=== PATIENT | female | born 1955 | race Caucasian/White ===

== ENCOUNTER 2025-03-24 13:06 | Inpatient (IN) | payer MEDICARE, BC, SELFPAY ==
--- NOTE | ~2025-03-24 | CT_ITS ---
EXAMINATION: CT ABDOMEN AND PELVIS WITH CONTRAST CLINICAL INFORMATION: No abdominal pain, constipation COMPARISON: None available. TECHNIQUE: Multidetector volumetric images were obtained from the superior aspect of the liver through the pubic symphysis following administration 85 mL of Omnipaque 350 intravenous contrast. Sagittal and coronal reformatted images were obtained on the technologist's workstation. Oral contrast: No This CT examination was performed using dose optimization techniques as appropriate, variously including the following: *Automated exposure control *Adjustment of mA and/or kV according to patient size (this includes techniques or standardized protocols for targeted exams where dose is matched to indication/reason for exam; i.e. extremities or head) *Use of iterative reconstruction technique FINDINGS: LUNG BASES: The visualized lung bases are unremarkable. LIVER, GALLBLADDER, AND BILIARY TREE: The liver is normal in size, shape, and attenuation. No focal hepatic lesion or biliary ductal dilatation is present. The gallbladder is unremarkable with no evidence of radiopaque gallstones, gallbladder wall thickening, or obvious pericholecystic inflammatory changes. PANCREAS: Unremarkable. SPLEEN: Unremarkable. ADRENAL GLANDS: Unremarkable. KIDNEYS AND URETERS: Parapelvic cysts are present on the left. Kidneys and ureters are otherwise unremarkable. BLADDER: Unremarkable. GASTROINTESTINAL TRACT: There are numerous pseudodiverticula in the sigmoid colon. There is thickening of the wall of the rectosigmoid junction and fat stranding. There are a few small pockets of gas anteriorly (axial CT#3.IM 62-) that are likely within a pseudodiverticula, but localized perforation is not entirely ruled out. There is moderate size sliding hiatal hernia containing stomach fundus. ABDOMINAL WALL: No significant hernia is appreciated. LYMPH NODES: Normal. VASCULAR: Unremarkable. PELVIC VISCERA: The uterus and ovaries is unremarkable. OSSEOUS STRUCTURES: Unremarkable. CT/CT abdomen pelvis w IV con IMPRESSION: Acute diverticulitis of the rectosigmoid junction. There are tiny pockets of gas that are probably within thinned pseudodiverticula, however a microperforation is not entirely excluded. There is no abscess. There is a moderate size sliding hiatal hernia involving the stomach fundus. Fleischner guidelines were followed. Electronically signed by: Juanjo Jones MD 03/24/2025 05:02 PM EDT
--- NOTE | ~2025-03-24 | CT_ITS ---
PROCEDURE: CT-GUIDED DRAINAGE, RETROPERITONEAL ABSCESS CLINICAL INFORMATION: DRAIN PLACEMENT PELVIC DIVERTICULAR ABSCESS COMPARISON: Previous CT scans most recent from yesterday TECHNIQUE: Procedure and risks and benefits were discussed with the patient including bleeding infection injury to the bowel or pelvic organs informed consent was obtained. The patient was positioned in the right lateral decubitus position. Limited axial images through the lower abdomen and pelvis were performed. Left buttock was prepped and draped in the usual sterile fashion. Skin and soft tissues were anesthetized with 1% lidocaine plain. Using a 22-gauge Chiba needle, access to the collection in the pelvis was obtained. Over an 018 wire, a 6 [place] AccuStick system was positioned in the collection. Over an 035 wire, a 10 [place] drainage catheter was positioned. Approximately 50 mL of slightly cloudy yellow fluid was aspirated. Drain was left in place to external bag drainage. Specimen was sent for Gram stain and culture. Conscious sedation was provided by registered nurse under my direct supervision with continuous hemodynamic monitoring. Total sedation time 30 minutes. Patient received Versed 1 mg and fentanyl 50 mcg intravenously during the procedure. DLP 3 09 mgy/cm This CT examination was performed using dose optimization techniques as appropriate, variously including the following: *Automated exposure control *Adjustment of mA and/or kV according to patient size (this includes techniques or standardized protocols for targeted exams where dose is matched to indication/reason for exam; i.e. extremities or head) *Use of iterative reconstruction technique FINDINGS: There is a collection containing some air in the pelvis anterior to the rectum and posterior to the uterus measuring 8 cm. Images demonstrate satisfactory position of drainage catheter in the collection. There is diverticulitis of the distal colon with wall thickening and stranding of the fat. There is a small amount of free intraperitoneal air that is similar to yesterday's exam. CT/CT drain retroperitoneal IMPRESSION: 10 [place] pelvic drain placement. Electronically signed by: Ashely Fulton MD 04/01/2025 12:27 PM EDT
--- NOTE | ~2025-03-24 | CT_ITS ---
EXAMINATION: CT ABDOMEN AND PELVIS WITH CONTRAST CLINICAL INFORMATION: Acute diverticulitis, with microperforations. COMPARISON: March 24, 2025. TECHNIQUE: Multidetector volumetric images were obtained from the superior aspect of the liver through the pubic symphysis following administration 85 mL of Omnipaque 350 intravenous contrast. Sagittal and coronal reformatted images were obtained on the technologist's workstation. Oral contrast: No This CT examination was performed using dose optimization techniques as appropriate, variously including the following: *Automated exposure control *Adjustment of mA and/or kV according to patient size (this includes techniques or standardized protocols for targeted exams where dose is matched to indication/reason for exam; i.e. extremities or head) *Use of iterative reconstruction technique DLP: 445 mGy centimeter. FINDINGS: There is a segmental asymmetric wall thickening involving the sigmoid colon and rectosigmoid colon with extraluminal tiny air/gas bubbles at the medial aspect of the rectosigmoid colon with a subtle 17 mm peripheral enhancing ill-defined fluid collection posterior to the uterus and anterior medial to the rectosigmoid colon. Gas and fluid-filled prominent distal small bowel loops. Collapsed appearance of the descending colon and numerous diverticula in the sigmoid colon. Abundant stool throughout the large intestine. The appendix is not fully depicted on the exam. There is no mesocecum fluid collections. There is a moderate to large volume hiatal hernia. There is no other change within the intra-abdominal solid organs and vascular structures. Prominent, likely reactive mesenteric and retroperitoneal lymph nodes. There is a retroaortic trajectory of the left main renal vein. CT/CT abdomen pelvis w IV con IMPRESSION: Complicated acute sigmoid colon diverticulitis with 17 mm phlegmon secondary to microperforations Fleischner guidelines were followed. Electronically signed by: Delfino Natarajan MD 03/26/2025 10:41 AM EDT
--- NOTE | ~2025-03-24 | CT_ITS ---
EXAMINATION: CT ABDOMEN PELVIS WITH IV CONTRAST HISTORY: diverticulitis w/ microperforation COMPARISON: Comparison is made with the prior examination dated 03/26/2025. TECHNIQUE: CT scan of the abdomen and pelvis was performed following administration of 85 mL Omnipaque 350 using standard departmental protocol. Coronal and sagittal reformatted images were generated and reviewed. Oral contrast material was not administered at the request of the referring physician. This CT exam was performed with one or more of the following dose reduction techniques: automated exposure control, adjustment of the mA and/or kV according to patient size, use of iterative reconstruction technique. DLP: 515 mGy-cm FINDINGS: LOWER CHEST: The visualized lung bases are clear. There are small bilateral pleural effusions, right greater than left.. CARDIOVASCULATURE: The heart is normal in size. There is no pericardial effusion. LIVER: The liver is normal in size and contour. No liver mass is identified. The hepatic and portal veins are patent. GALLBLADDER / BILE DUCTS: The gallbladder is unremarkable. There is no intra or extrahepatic biliary ductal dilatation. SPLEEN: The spleen is normal in size. No focal splenic lesion is identified. PANCREAS: The pancreas is unremarkable in appearance. ADRENAL GLANDS: Within normal limits. KIDNEYS/RETROPERITONEUM: No renal calculi are identified. There is no hydronephrosis. No renal masses are identified. LYMPH NODES: No abdominal or pelvic lymphadenopathy. VASCULATURE: The abdominal aorta is normal in caliber. MESENTERY/PERITONEUM: There is free fluid in the left midabdomen. There is new free intraperitoneal gas in the upper abdomen. STOMACH: There is a moderate hiatal hernia. The remainder of the stomach is collapsed. SMALL BOWEL: The small bowel is normal in caliber. COLON: Again seen is diverticulosis of the sigmoid colon. Surrounding inflammatory stranding is consistent with diverticulitis. There is a rim-enhancing fluid collection containing bubbles of gas in the dependent portion of the pelvis measuring 7.8 x 5.8 x 5.7 cm, consistent with an abscess. APPENDIX: The appendix is not seen, however no inflammatory changes are seen adjacent to the cecum. URINARY BLADDER/PELVIC ORGANS: The urinary bladder is unremarkable. The uterus is unremarkable. BONES / SOFT TISSUES: No suspicious bony or soft tissue abnormalities. CT/CT abdomen pelvis w IV con IMPRESSION: Again seen are findings of sigmoid diverticulitis. There is new free intraperitoneal gas in the upper abdomen and free fluid in the left midabdomen. New 7.8 x 5.8 x 5.7 cm pelvic abscess. Findings were communicated to MALVIN Huggins by secure text message on 03/31/2025 at 9:41 AM. Electronically signed by: Branden Cutler MD 03/31/2025 09:45 AM EDT
[2025-03-24 13:20] VITALS: BP 142/65; PULSE 86; RESP 16; TEMP 36.7; O2SAT 98; BMI 25.9
--- NOTE | 2025-03-24 13:21 | ED.GENADULT ---
HPI - General Adult General Chief complaint: Abdominal Pain Stated complaint: lower abd pain Time Seen by Provider: 03/24/25 15:39 Source: patient, family and old records reviewed Mode of arrival: ambulatory Limitations: no limitations History of Present Illness ED Provider: J LUIS EDMONDSON narrative: 69 yo female with PMH of HTN, HLD, RA on remicade and methotrexate here with c/o small stools, feels it it hard to go and LLQ pain. No fevers, no n/v. No real appetite. She has not had this before. She has no urinary symptoms. Last normal colonoscopy in 2021. She has no hx of diverticulitis. MD complaint: abd pain, change in stools. Onset (ago): day(s) (3) Location: abdomen Radiation: non-radiation Severity: moderate Quality: aching Pain Consistency: intermittent Relieving factors: none Exacerbating factors: movement Associated symptoms: loss of appetite and other Treatments prior to arrival: none Related Data Allergies Allergy/AdvReac Type Severity Reaction Status Date / Time No Known Allergies Allergy Verified 03/24/25 13:21 Review of Systems Review of Systems: Constitutional : No Weight loss, No Fever, No Chills ENT/Mouth : No sore throat, No Rhinorrhea Eyes: No Swelling, No Redness Cardiovascular : No Chest Pain, No SOB, NoEdema Respiratory : No Cough, No Sputum, No Wheezing Gastrointestinal : Positive Nausea, no Vomiting, no Diarrhea, positive abdominal Pain, No Hematochezia, No Melena Genitourinary : No Dysuria, No Urinary Frequency, No Hematuria, No Urgency Musculoskeletal : No joint pain, No Myalgias, No Joint Swelling Skin : No Skin Lesions, No rash Neuro : No Weakness, No Numbness, No Dizziness, No Headache All other systems reviewed and are negative. [facility] Past Medical History Attestation statement: The following information was validated with the patient. Source: old records reviewed Medical History HLD (hyperlipidemia) Rheumatoid arthritis HTN (hypertension) Social History Social History Smoked in Last 30 Days: No Use of substances other than those prescribed or required for medical reasons: No Advance Directives: Yes Advance Directives Information Provided: No Advance Directives on File: No Do you have a plan to hurt others: No Plan Physical Exam ED Vital Signs: Vital Signs - 24 hr 03/24/25 13:20 03/24/25 15:06 Temperature 98.1 F Pulse Rate 86 76 Respiratory Rate 16 16 Blood Pressure 142/65 H 145/64 H Pulse Oximetry 98 98 Oxygen Delivery Method Room Air Room Air BMI result Body Mass Index 25.9 Appearance: Alert. Oriented X3. No acute distress. Eyes: Pupils equal, round and reactive to light. ENT: Pharynx normal. Neck: Normal inspection. Neck supple. CVS: Normal heart rate and rhythm. Pulses normal. Respiratory: No respiratory distress. Breath sounds normal. Abdomen: Soft and moderate ttp in LLQ no rebound or guarding Skin: Skin warm and dry. Normal skin color. Normal skin turgor. Extremities: No lower extremity edema. Neuro: Oriented X 3. No motor deficit. No sensory deficit. Course Course Course Narrative: Rapid medical examination performed in triage by Elise Inman PA-C. Patient is a 69 year old assigned female at presenting to the emergency department with lower abdominal pain. Detailed physical exam and review of systems are deferred to the rigging foreman. Labs ordered. Patient placed back in the waiting room pending room availability and results. Reevaluation(s) Reevaluation #1: possible micro perforation with diverticulitis will consult with Dr. Pearl 514pm infection suspected 514pm IV zosyn ordered Medications Administered Discontinued Medications Generic Name Dose Route Start Last Admin Trade Name Freq PRN Reason Stop Dose Admin Acetaminophen 1,000 mg in 100 mls @ 400 mls/hr 03/24/25 16:29 03/24/25 16:46 Ofirmev IV 03/24/25 16:43 400 mls/hr ONCE ONE Administration Iohexol 100 ml 03/24/25 16:43 03/24/25 16:43 Iohexol 350 Mg/Ml 100 Ml Infus..Btl IV 03/24/25 16:44 85 ml ONCE ONE Administration Morphine Sulfate 4 mg 03/24/25 16:03/24/25 16:46 Morphine Sulfate 4 Mg/Ml Cartridge IVPUSH 03/24/25 16:30 Not Given ONCE ONE Protocol Ondansetron HCl 4 mg 03/24/25 16:29 03/24/25 16:46 Ondansetron Hcl 4 Mg/2 Ml Vial IVPUSH 03/24/25 16:30 4 mg ONCE ONE Administration Medical Decision Making Medical Decision Making MDM Narrative: 69 yo female with PMH of HTN, HLD, RA on remicade and methotrexate here with c/o LLQ pain and change in stools at this time will need basic labs, CT scan for diverticular ds, colitis, renal colic, IV morphine for pain ordered. Differential Diagnosis Differential Diagnoses: The differential diagnosis associated with the presentation includes colitis, diverticular ds, renal colic, mass Admission/Observation Consideration of admission/observation: Escalation of care including admission/observation considered will admit for IV abx Consult Healthcare Provider Management of the patient was discussed with: Cardiopulmonary Physical Therapist (Dr. pearl to admit) Lab Data [facility] Lab Attestation statement: I reviewed the patient's lab results. 03/24/25 13:53 03/24/25 13:53 Labs: Lab Results 03/24/25 Range/Units 13:53 WBC 11.1 H (4.8-10.8) X10*3/uL RBC 4.08 L (4.20-5.50) X10*6/uL Hgb 13.2 (12.0-16.0) g/dl Hct 38.6 (37.0-47.0) % MCV 94.6 (80.0-98.0) fL MCH 32.4 (27.0-33.0) pg MCHC 34.2 (31.0-35.0) g/dl RDW 12.9 (11.0-16.0) % Plt Count 278 (160-400) X10*3/uL MPV 10.2 (9.4-12.3) fL Immature Gran % (Auto) 0.3 (0.0-0.4) % Neut % (Auto) 81.9 H (45-73) % Lymph % (Auto) 11.2 L (20-40) % Calloway % (Auto) 5.8 (2-11) % Eos % (Auto) 0.4 (0-4) % Baso % (Auto) 0.4 (0-2) % Lymph # (Auto) 1.3 (1.2-4.9) X10*3/uL Calloway # (Auto) 0.6 (0.1-1.2) X10*3/uL Eos # (Auto) 0.0 (0.0-0.4) X10*3/uL Baso # (Auto) 0.0 (0.0-0.2) X10*3/uL Abs Immat Gran (auto) 0.03 (0.00-0.03) X10*3/uL Absolute Neuts (auto) 9.1 H (2.0-8.3) x10*3/uL Absolute Nucleated RBC 0.000 (0.0-0.012) X10*3/uL Nucleated RBC % (auto) 0.0 (0.0-0.2) /100WBC Sodium 140 (135-145) mmol/L Potassium 3.9 (3.3-5.1) mmol/L Chloride 106 (96-108) mmol/L Carbon Dioxide 25 (22-29) mmol/L Anion Gap 13 (12-20) BUN 14 (9-16) mg/dL Creatinine 0.65 (0.5-1.4) mg/dL Estim Creat Clear Calc 88.8 Estimated GFR > 60 Random Glucose 82 (60-115) mg/dL Calcium 9.6 (8.4-10.2) mg/dL Magnesium 2.1 (1.6-2.6) mg/dL Total Bilirubin 0.4 (0.0-1.0) mg/dL AST 32 H (5-31) U/L ALT 67 H (0-31) U/L Alkaline Phosphatase 78 (39-117) U/L Total Protein 7.3 (6.5-8.0) g/dL Albumin 4.3 (3.5-5.0) g/dL Lipase 14 (8-78) U/L Independent Interpretation I performed an independent interpretation of an: CT Scan (diverticultis with microperforation) Radiology Impression Discussion of test interpretation with radiology: I have reviewed the radiologist's reading. Independent Historian Clinical information obtained from an independent historian. History obtained from or confirmed by: Spouse External Record Review External record reviewed: Outpatient record Prescription Management I considered prescription management with: Pain Medication and Antibiotic Discharge Plan Discharge Clinical Impression: Diverticulitis, Abdominal pain Patient Disposition: Admitted As Inpatient Print Language: Cuban
[2025-03-24 13:58] LABS: MANUAL DIFF FLAG NO
[2025-03-24 14:00] LABS: Hematocrit 38.6 % (37.0-47.0); Hemoglobin 13.2 g/dl (12.0-16.0); Imm Gran Abs Auto 0.03 X10*3/uL (0.00-0.03); Imm Gran Pct Auto 0.3 % (0.0-0.4); Lymphocytes Absolute Auto 1.3 X10*3/uL (1.2-4.9); Mean Corpuscular HGB Conc 34.2 g/dl (31.0-35.0); Mean Corpuscular Hemoglobin 32.4 pg (27.0-33.0); Mean Corpuscular Volume 94.6 fL (80.0-98.0); NRBC Abs Auto 0.000 X10*3/uL (0.0-0.012); NRBC Pct Auto 0.0 /100WBC (0.0-0.2); Platelet Count 278 X10*3/uL (160-400); Red Blood Count 4.08 X10*6/uL (4.20-5.50); White Blood Count 11.1 X10*3/uL (4.8-10.8)
[2025-03-24 14:14] LABS: Alanine Aminotransferase 67 U/L (0-31); Albumin Level 4.3 g/dL (3.5-5.0); Alkaline Phosphatase 78 U/L (39-117); Anion Gap 13 (12-20); Aspartate Amino Transferase 32 U/L (5-31); Blood Urea Nitrogen 14 mg/dL (9-16); Calcium 9.6 mg/dL (8.4-10.2); Carbon Dioxide 25 mmol/L (22-29); Chloride 106 mmol/L (96-108); Creatinine Clr Calc Pharmacy 88.8; Estimated Glomerular Filt Rate > 60; Magnesium 2.1 mg/dL (1.6-2.6); Potassium 3.9 mmol/L (3.3-5.1); Sodium 140 mmol/L (135-145); Total Protein 7.3 g/dL (6.5-8.0)
[2025-03-24 15:06] VITALS: BP 145/64; PULSE 76; RESP 16; O2SAT 98
--- NOTE | 2025-03-24 15:14 | PC.NURSE ---
Patient is a 69 yo female who presents with lower abdominal cramping since [place] with assoc nausea. Alert and oriented. Lungs clear bilat. Respirations even and non-labored. Abdomen soft, with positive bowel sounds. c/o lower abdominal cramping. No significant tenderness noted. Denies any urinary symptoms at this time. Positive pedal pulses with no edema.
[2025-03-24 16:31] LABS: Lipase 14 U/L (8-78)
[2025-03-24] MEDS: iohexoL 350 MG/ML 100 ML INFUS..BTL IV (16:43)
--- NOTE | 2025-03-24 17:26 | PM.HPGS ---
History of Present Illness History of Present Illness Date of Service: 04/06/25 Chief complaint: Diverticulitis with microperforation Narrative: Domi Ghosh is a 69 year old female known for about her arthritis, GERD, hypertension, here in the ER because of lower abdominal pain for the past 3 days. She says that she thought that this was food poisoning. She says that this has not getting worse at all but just seems to have been persistent. She decided to be checked in the ER today therefore. She denies any vomiting. She denies any diarrhea. She does state that she has had some constipation She has had no fever or chills. She says her pain is [id number]. She says that she had a colonoscopy in 2021 and she remembers this to be unremarkable. Review of Systems Constitutional: Constitutional: Denies chills and Denies fever(s) Cardiovascular: Cardiovascular: Denies chest pain, Denies dyspnea and Denies dyspnea on exertion Respiratory: Respiratory: Denies cough, Denies dyspnea and Denies dyspnea on exertion Gastrointestinal: Gastrointestinal: Denies hematochezia and Denies change in bowel habits Genitourinary: Genitourinary: Denies hematuria Musculoskeletal: Musculoskeletal: Denies back pain and Denies limited range of motion Neurologic: Denies focal weakness and Denies convulsions Psychiatric: Psychiatric: Denies depression and Denies mood swings PMFSH Past Medical History Medical History HLD (hyperlipidemia) Rheumatoid arthritis HTN (hypertension) Social History Social History Household Members: Spouse Housing: House Patient Tobacco Use Status: Never used Tobacco Advance Directives Date on File: 03/24/25 service: No Meds Allergies Allergy/AdvReac Type Severity Reaction Status Date / Time No Known Allergies Allergy Verified 03/24/25 13:21 Active Medications: Current Medications Piperacillin Sod/Tazobactam (Sod 3.375 gm/ Sodium Chloride) 50 mls @ 100 mls/hr IV ONCE ONE Stop: 03/24/25 17:42 Home Medications ?Medication ?Instructions ?Recorded ?Confirmed ?Last Taken ?Type alendronate 70 mg tablet 70 mg PO MO 03/24/25 03/24/25 03/17/25 History amlodipine 5 mg-benazepril 10 mg 1 cap PO DAILY 03/24/25 03/24/25 03/24/25 History capsule esomeprazole magnesium 40 mg 40 mg PO DAILY@0630 03/24/25 03/24/25 03/24/25 History capsule,delayed release folic acid 1 mg tablet 1 mg PO DAILY 03/24/25 03/24/25 03/24/25 History infliximab 100 mg intravenous 100 mg IV [id number] 03/24/25 03/24/25 02/25/25 History solution (Remicade) methotrexate sodium 2.5 mg tablet 20 mg PO MO 03/24/25 03/24/25 03/17/25 History Physical Exam Vital Signs: Vital Signs: Last Vital Signs Temp 98.1 F 03/24/25 13:20 Pulse 76 03/24/25 15:06 Resp 16 03/24/25 15:06 BP 145/64 H 03/24/25 15:06 Pulse Ox 98 03/24/25 15:06 O2 Del Method Room Air 03/24/25 15:06 BMI result Body Mass Index 25.9 Const: General: comfortable and no acute distress Orientation/consciousness: patient oriented x3 Neck: Neck: Yes no lymphadenopathy Resp: Auscultation: clear to auscultation bilaterally Cardio: Rhythm: regular rhythm GI: Other: Mild tenderness in the lower abdomen with no guarding or rebound Palpation (GI): Soft to palpation, Tenderness to palpation present (GI) (Mild) and no guarding Neuro: General: patient oriented x3 Results Results Labs: Short CBC 03/24/25 Range/Units 13:53 WBC 11.1 H (4.8-10.8) X10*3/uL Hgb 13.2 (12.0-16.0) g/dl Hct 38.6 (37.0-47.0) % Plt Count 278 (160-400) X10*3/uL BMP 03/24/25 13:53 Sodium 140 Potassium 3.9 Chloride 106 Carbon Dioxide 25 BUN 14 Creatinine 0.65 Calcium 9.6 Liver Function 03/24/25 Range/Units 13:53 Total Bilirubin 0.4 (0.0-1.0) mg/dL AST 32 H (5-31) U/L ALT 67 H (0-31) U/L Alkaline Phosphatase 78 (39-117) U/L Albumin 4.3 (3.5-5.0) g/dL Abdomen CT scan report/results: report reviewed and image reviewed CT scan - pelvis: report reviewed and image reviewed Additional studies: CT/CT abdomen pelvis w IV con IMPRESSION: Acute diverticulitis of the rectosigmoid junction. There are tiny pockets of gas that are probably within thinned pseudodiverticula, however a microperforation is not entirely excluded. There is no abscess. There is a moderate size sliding hiatal hernia involving the stomach fundus. Assessment and Plan (1) Diverticulitis: Status: Acute She has had lower abdominal pain x3 days I have reviewed her CAT scan and there is appears to be small locules of extraluminal air in the pelvis adjacent to the area of the rectosigmoid. This is suggestive of acute diverticulitis with a microperforation. She denies any fever or chills. Her abdominal exam is very benign. She looks comfortable and has minimal tenderness on exam I did tell her that because of the CAT scan findings, I we will admit her for IV antibiotics and bowel rest. I also explained to her that there is a very small chance that if she worsens, she will may require surgery which we will involve resection and a colostomy. Her was with her during the discussion. I also updated her daughter in-law by phone. She seems to have a good understanding of the plan. I will also consult the hospitalist service in view of her other medical problems including rheumatoid arthritis and hypertension Quality Stroke Does the patient have a stroke diagnosis?: No VTE Prior VTE?: No VTE Risk Level:: Medical - moderate - high VTE Device Contraindication: N/A - Device Ordered VTE Drug Contraindication: N/A - Med Ordered Procedures Date of Service Date of Service: 04/06/25
[2025-03-24] MEDS: Lactated Ringers 1,000 ML 100 ML IVCONT (17:46)
[2025-03-24 17:49] LABS: Appearance Urine Clear; Glucose Urine UA Negative (Negative); PH 5.0 (5.0-9.0); Specific Gravity - Urine 1.020 (1.005-1.025); UMIC TRIGGER UACC YES
--- OUTSIDE RECORDS SUMMARY | 2025-03-24 18:01 | XMS_ITS | Patient Health Record ---
Author Organization [facility] Address [address] [place] [address] Care Team Providers Care Chrome Cleaner Name Role Phone Malena Calderon MD Primary Care Provider Alli Ontiveros Jr Unavailable Reason For Referral No Information Medications Medication SIG (Take, Route, Fr equency, Duration) Notes Start Date End Date Status MoviPrep 100 GM as directed before c olonoscopy Orally for 1 dose 11/05/2014 Active Problems Problem Type SNOMED Code ICD Code Onset Dates Problem Status W/U Status Risk Notes Problem [id number] Rectal bleeding (569.3) Active confirmed Plan Of Treatment Future Test Test Name Order Date COLONOSCOPY 11/05/2014 Insurance Providers Payer Name Payer Address Payer Phone Subscriber Number Group Number Insured Name Patient Relationship to Insured Coverage Start Date Coverage End Date [facility] [address] [place], [place] [id number] ERIC LEAHY Self - patient is the insured Medical (General) History Medical History History ICD Code Denies RI,DM,CVA,Lung disease,renal dise ase
[2025-03-24 18:20] LABS: UACC Culture Trigger YES
--- NOTE | 2025-03-24 18:54 | PHA.MEDREC ---
Addendum entered by Benedict Mullins PharmD 03/24/25 19:14: reviewed Original Note: Pharmacy Consult ? Medication Reconciliation Pharmacy has completed the medication reconciliation. Patient was able to name all of her medications. Patient confirmed Alendronate 70 mg every Monday, last dose 03/17/25, Methotrexate sodium 20 mg (8x 2.5 mg) every Monday, however last dose was Monday03/17/25, Remicade every 2 months , last dose 02/25/25. Patient had all her morning medications today.
[2025-03-24 20:00] VITALS: BP 134/63; PULSE 74; RESP 18; TEMP 36.1; O2SAT 98
[2025-03-24 21:12] VITALS: BMI 27.1
[2025-03-24 23:45] VITALS: BP 130/61; PULSE 70; RESP 16; TEMP 36.2; O2SAT 99
[2025-03-25 03:31] VITALS: BP 120/57; PULSE 68; RESP 14; TEMP 36; O2SAT 96
[2025-03-25] MEDS: Lactated Ringers 1,000 ML 100 ML IVCONT ×2 (04:29→18:06)
[2025-03-25 06:29] LABS: Hematocrit 34.0 % (37.0-47.0); Hemoglobin 11.7 g/dl (12.0-16.0); Mean Corpuscular HGB Conc 34.4 g/dl (31.0-35.0); Mean Corpuscular Hemoglobin 32.7 pg (27.0-33.0); Mean Corpuscular Volume 95.0 fL (80.0-98.0); NRBC Abs Auto 0.000 X10*3/uL (0.0-0.012); NRBC Pct Auto 0.0 /100WBC (0.0-0.2); Platelet Count 255 X10*3/uL (160-400); Red Blood Count 3.58 X10*6/uL (4.20-5.50); White Blood Count 5.7 X10*3/uL (4.8-10.8)
[2025-03-25 06:41] LABS: Anion Gap 13 (12-20); Blood Urea Nitrogen 10 mg/dL (9-16); Calcium 8.6 mg/dL (8.4-10.2); Carbon Dioxide 25 mmol/L (22-29); Chloride 109 mmol/L (96-108); Creatinine Clr Calc Pharmacy 95.0; Estimated Glomerular Filt Rate > 60; Potassium 3.6 mmol/L (3.3-5.1); Sodium 143 mmol/L (135-145)
[2025-03-25 07:51] VITALS: BP 137/61; PULSE 74; RESP 16; TEMP 36.3; O2SAT 98
--- NOTE | 2025-03-25 07:51 | P.PNGS_ITS ---
Subjective Subjective Date of Service: 03/25/25 <Desean Landry PA-C - Last Filed: 03/25/25 07:58> 03/25/25 <Kishan Lees MD - Last Filed: 03/25/25 08:47> Interval history: doing well today, feels much improved. Pain now 3/10, very mild. Denies nausea, vomiting, fever,chills. She is passing gas, no BM. hoping to go home soon <Desean Landry PA-C - Last Filed: 03/25/25 07:58> Physical Exam 2 Vital Signs: Vital Signs: Last Vital Signs Temp 96.8 F 03/25/25 03:31 Pulse 68 03/25/25 03:31 Resp 14 03/25/25 03:31 BP 120/57 L 03/25/25 03:31 Pulse Ox 96 03/25/25 03:31 O2 Del Method Room Air 03/25/25 03:31 BMI result Body Mass Index 27.1 <Desean Landry PA-C - Last Filed: 03/25/25 07:58> Const: General: comfortable and no acute distress <Desean Landry PA-C - Last Filed: 03/25/25 07:58> Orientation/consciousness: patient oriented x3 <JORGE Huggins Last Filed: 03/25/25 07:58> Resp: Effort & Inspection: normal respiratory effort and able to speak in complete sentences <Desean Landry PA-C - Last Filed: 03/25/25 07:58> GI: Inspection: No distended <Desean Landry PA-C - Last Filed: 03/25/25 07:58> Palpation (GI): Soft to palpation and Tenderness to palpation present (GI) (very mildly tender ) in the LLQ <Desean Landry PA-C - Last Filed: 03/25/25 07:58> Neuro: General: patient oriented x3 <JORGE Huggins Last Filed: 03/25/25 07:58> Objective Data Active Medications Acetaminophen (Acetaminophen 325 Mg Tablet) 650 mg PO Q6H PRN PRN Reason: Pain, Mild 1-3,fever,headache Last Admin: 03/25/25 00:09 Dose: 650 mg Documented By: TOM Amlodipine Besylate (Amlodipine Besylate 5 Mg Tablet) 5 mg PO DAILY [facility]; Protocol Calcium Carbonate (Calcium Carbonate 750 Mg Tab.Chew) 750 mg PO Q4H PRN PRN Reason: Heartburn Heparin Sodium (Porcine) (Heparin Sodium,Porcine 5,000 Unit/Ml Vial) 5,000 unit SUBCUT Q8H [facility] Lactated Ringer's (Lr) 1,000 mls @ 100 mls/hr IVCONT .Q10H [facility] Last Admin: 03/25/25 04:29 Dose: 100 mls/hr Documented By: TOM Piperacillin Sod/Tazobactam (Sod 3.375 gm/ Sodium Chloride) 50 mls @ 100 mls/hr IV Q6H [facility] Last Infusion: 03/25/25 06:02 Dose: Infused Documented By: TOM Melatonin (Melatonin 3 Mg Tablet) 6 mg PO BEDTIME PRN PRN Reason: Insomnia Morphine Sulfate (Morphine Sulfate 4 Mg/Ml Cartridge) 2 mg IVPUSH Q4H PRN; Protocol PRN Reason: Pain, Severe (Pain Scale 7-10) Omeprazole (Omeprazole 20 Mg Capsule.Dr) 20 mg PO DAILY [facility] Ondansetron HCl (Ondansetron Hcl 4 Mg/2 Ml Vial) 4 mg IVPUSH Q6H PRN PRN Reason: nausea Sodium Chloride (0.9 % Sodium Chloride Flush 3 Ml Syringe) 3 ml IVFLUSH QSHIFT [facility] Last Admin: 03/25/25 00:20 Dose: Not Given Documented By: TOM Non-Admin Reason: IV Running <Desean Landry PA-C - Last Filed: 03/25/25 07:58> Labs CBC & Chem 7: 03/25/25 05:22 03/25/25 05:22 <Desean Landry PA-C - Last Filed: 03/25/25 07:58> Labs: Laboratory Results - last 24 hr 03/24/25 03/24/25 03/25/25 13:53 17:34 05:22 MCV 94.6 95.0 MCH 32.4 32.7 MCHC 34.2 34.4 RDW 12.9 12.6 Plt Count 278 255 MPV 10.2 10.9 Immature Gran % (Auto) 0.3 Neut % (Auto) 81.9 H Lymph % (Auto) 11.2 L Edmunds % (Auto) 5.8 Eos % (Auto) 0.4 Baso % (Auto) 0.4 Lymph # (Auto) 1.3 Edmunds # (Auto) 0.6 Eos # (Auto) 0.0 Baso # (Auto) 0.0 Abs Immat Gran (auto) 0.03 Absolute Neuts (auto) 9.1 H Absolute Nucleated RBC 0.000 0.000 Nucleated RBC % (auto) 0.0 0.0 Anion Gap 13 13 Estim Creat Clear Calc 88.8 95.0 Estimated GFR > 60 > 60 Random Glucose 82 85 Lactic Acid 0.9 Calcium 9.6 8.6 D Magnesium 2.1 Total Bilirubin 0.4 AST 32 H ALT 67 H Alkaline Phosphatase 78 Total Protein 7.3 Albumin 4.3 Lipase 14 Urine Color Yellow Urine Appearance Clear Urine pH 5.0 Ur Specific Theresa 1.020 Urine Protein Negative Urine Glucose (UA) Negative Urine Ketones 80 Urine Blood Negative Urine Nitrite Negative Ur Leukocyte Esterase Small (1+) H Urine RBC 0-2 Urine WBC 6-10 H Ur Squamous Epith Cells 3-5 Urine Bacteria None Seen Hyaline Casts 0-2 <Desean Landry PA-C - Last Filed: 03/25/25 07:58> Procedures Date of Service Date of Service: 03/25/25 <Desean Landry PA-C - Last Filed: 03/25/25 07:58> 03/25/25 <Kishan Lees MD - Last Filed: 03/25/25 08:47> Progress Note: A&P Assessment and plan (1) Diverticulitis: Status: Acute <Desean Landry PA-C - Last Filed: 03/25/25 07:58> Assessment and Plan: Feels well this morning Very minimal pain No nausea or vomiting Abdomen is soft, benign no significant tenderness WBC much improved Okay to try clear liquids Continue antibiotics Seen and examined independently <Kishan Lees MD - Last Filed: 03/25/25 08:47> Assessment and Plan: 69 year old female admitted for diverticulitis with microperforation, treating conservatively with bowel rest and abx. Patient doing much better today, pain decreasing, well controlled. She feels that its more like discomfort. Denies nausea or vomiting. She is hungry and wants to go home. WBC improved today, now WNL. Her abdomen is soft, benign. Recommended she get out of bed and walk. Will continue with conservative managment, no plan for surgical intervention. Continue with bowel rest this morning, possibly advance to clears this afternoon. She is agreeable to this plan. continue IV abx, bowel rest ambulation as tolerated possible trial of clear liquids this afternoon. <Desean Landry PA-C - Last Filed: 03/25/25 07:58> Time Spent With Patient Time: Total time managing care of this patient today ____ minutes. <Desean Landry PA-C - Last Filed: 03/25/25 07:58> Quality Stroke Does the patient have a stroke diagnosis?: No <Desean Landry PA-C - Last Filed: 03/25/25 07:58> VTE Prior VTE?: No <Desean Landry PA-C - Last Filed: 03/25/25 07:58> VTE Risk Level:: Medical - moderate - high <Desean Landry PA-C - Last Filed: 03/25/25 07:58> VTE Device Contraindication: N/A - Device Ordered <Desean Landry PA-C - Last Filed: 03/25/25 07:58> VTE Drug Contraindication: N/A - Med Ordered <Desean Landry PA-C - Last Filed: 03/25/25 07:58>
[2025-03-25] MEDS: 0.9 % Sodium Chloride Flush 3 ML SYRINGE IVFLUSH (07:53)
--- NOTE | 2025-03-25 09:25 | MHC.CM.PN ---
IMM 03/25/25 DX Diverticulitis w micro perf Lives with her spouse Independent with all functional mobility. PCP Tea Shoemaker HCP, copy requested. DP Home self care. Patient will arrange for her spouse to provide transportation home at discharge.
[2025-03-25 11:34] VITALS: BP 124/61; PULSE 77; RESP 16; TEMP 36.7; O2SAT 97
[2025-03-25 15:16] VITALS: BP 130/74; PULSE 82; RESP 16; TEMP 36.4; O2SAT 97
--- NOTE | 2025-03-25 15:43 | PM.EVENT ---
Event Note Date of Service: 03/25/25 Event Note: Seen on afternoon rounds Says she feels much better Minimal pain No nausea or vomiting Abdomen is soft, benign, nontender Tolerating clear liquids Continue current care Doing well overall Time Spent With Patient Time: Total time managing care of this patient today ____ minutes.
[2025-03-25 19:17] VITALS: BP 147/73; PULSE 67; RESP 18; TEMP 36.6; O2SAT 97
[2025-03-26] VITALS: BP 142/70; PULSE 66; RESP 17; TEMP 37.1
[2025-03-26 03:21] VITALS: BP 145/70; PULSE 61; RESP 18; TEMP 36.8; O2SAT 97
[2025-03-26] MEDS: Lactated Ringers 1,000 ML 100 ML IVCONT (04:13)
[2025-03-26 07:37] VITALS: BP 172/77; PULSE 63; RESP 18; TEMP 36.9; O2SAT 97
--- NOTE | 2025-03-26 07:54 | PM.PNGS ---
Subjective Subjective Date of Service: 03/26/25 <Desean Landry PA-C - Last Filed: 03/26/25 07:58> 03/26/25 <Kishan Lees MD - Last Filed: 03/26/25 08:11> Interval history: doing well, denies pain, nausea or vomiting. tolerating clear liquid diet. hungry, wants to go home <Desean Lnadry PA-C - Last Filed: 03/26/25 07:58> Physical Exam Vital Signs: Vital Signs: Last Vital Signs Temp 98.5 F 03/26/25 07:37 Pulse 63 03/26/25 07:37 Resp 18 03/26/25 07:37 BP 172/77 H 03/26/25 07:37 Pulse Ox 97 03/26/25 07:37 O2 Del Method Room Air 03/26/25 07:37 O2 Flow Rate 95 03/26/25 00:00 BMI result Body Mass Index 27.1 <Desean Landry PA-C - Last Filed: 03/26/25 07:58> Const: General: comfortable and no acute distress <Desean Landry PA-C - Last Filed: 03/26/25 07:58> Orientation/consciousness: patient oriented x3 <Desean Landry PA-C - Last Filed: 03/26/25 07:58> GI: Inspection: No distended <Desean Landry PA-C - Last Filed: 03/26/25 07:58> Palpation (GI): Soft to palpation and nontender <Desean Landry PA-C - Last Filed: 03/26/25 07:58> Neuro: General: patient oriented x3 <Desean Landry PA-C - Last Filed: 03/26/25 07:58> Objective Data Active Medications Acetaminophen (Acetaminophen 325 Mg Tablet) 650 mg PO Q6H PRN PRN Reason: Pain, Mild 1-3,fever,headache Last Admin: 03/25/25 00:09 Dose: 650 mg Documented By: TOM Amlodipine Besylate (Amlodipine Besylate 5 Mg Tablet) 5 mg PO DAILY [facility]; Protocol Last Admin: 03/25/25 07:52 Dose: 5 mg Documented By: JORDAN Calcium Carbonate (Calcium Carbonate 750 Mg Tab.Chew) 750 mg PO Q4H PRN PRN Reason: Heartburn Heparin Sodium (Porcine) (Heparin Sodium,Porcine 5,000 Unit/Ml Vial) 5,000 unit SUBCUT Q8H [facility] Last Admin: 03/26/25 05:52 Dose: Not Given Documented By: REJI Non-Admin Reason: Patient Refused Lactated Ringer's (Lr) 1,000 mls @ 100 mls/hr IVCONT .Q10H [facility] Last Admin: 03/26/25 04:13 Dose: 100 mls/hr Documented By: REJI Piperacillin Sod/Tazobactam (Sod 3.375 gm/ Sodium Chloride) 50 mls @ 100 mls/hr IV Q6H [facility] Last Infusion: 03/26/25 06:06 Dose: Infused Documented By: REJI Melatonin (Melatonin 3 Mg Tablet) 6 mg PO BEDTIME PRN PRN Reason: Insomnia Morphine Sulfate (Morphine Sulfate 4 Mg/Ml Cartridge) 2 mg IVPUSH Q4H PRN; Protocol PRN Reason: Pain, Severe (Pain Scale 7-10) Omeprazole (Omeprazole 20 Mg Capsule.Dr) 20 mg PO DAILY [facility] Last Admin: 03/25/25 07:52 Dose: 20 mg Documented By: JORDAN Ondansetron HCl (Ondansetron Hcl 4 Mg/2 Ml Vial) 4 mg IVPUSH Q6H PRN PRN Reason: nausea Sodium Chloride (0.9 % Sodium Chloride Flush 3 Ml Syringe) 3 ml IVFLUSH QSHIFT [facility] Last Admin: 03/25/25 22:53 Dose: Not Given Documented By: REJI Non-Admin Reason: IV Running <Desean Landry PA-C - Last Filed: 03/26/25 07:58> Labs CBC & Chem 7: 03/25/25 05:22 03/25/25 05:22 <Desean Landry PA-C - Last Filed: 03/26/25 07:58> Microbiology Microbiology Results: Microbiology 03/24/25 17:34 Blood Culture - Preliminary Blood - Venous No growth after 24 hours. 03/24/25 17:34 Blood Culture - Preliminary Blood - Venous Prelim: GNR Gram Stain only 03/24/25 17:20 Urine Culture - Preliminary Urine clean catch - Clean Catch Midstream No growth to date. <Desean Landry PA-C - Last Filed: 03/26/25 07:58> Procedures Date of Service Date of Service: 03/26/25 <Desean Landry PA-C - Last Filed: 03/26/25 07:58> 03/26/25 <Kishan Lees MD - Last Filed: 03/26/25 08:11> Progress Note: A&P Assessment and plan (1) Diverticulitis: Status: Acute <Desean Landry PA-C - Last Filed: 03/26/25 07:58> Assessment and Plan: She denies pain Feels well Tolerating clear liquids Has flatus Abdomen is soft and benign, nontender We will order for follow-up CT prior to advancing diet Doing well overall Seen and examined independently <Kishan Lees MD - Last Filed: 03/26/25 08:11> Assessment and Plan: 69 year old female admitted for diverticulitis with microperforation, treating conservatively with bowel rest and abx. Patient doing much better today, denies pain. Denies nausea or vomiting. She is hungry and wants to go home. Her abdomen is soft, benign. Recommended she get out of bed and walk. Will continue with conservative managment, no plan for surgical intervention. She is tolerating clear liquids, will order repeat CT due to the free air found on initial CT scan, pending results can likely advance diet. Repeat CT w/ IV contrast continue IV abx, clear liquids ambulation as tolerated possible trial of clear liquids this afternoon. <Desean Landry PA-C - Last Filed: 03/26/25 07:58> Time Spent With Patient Time: Total time managing care of this patient today ____ minutes. <Desean Landry PA-C - Last Filed: 03/26/25 07:58> Quality Stroke Does the patient have a stroke diagnosis?: No <JORGE Huggins Last Filed: 03/26/25 07:58> VTE Prior VTE?: No <JORGE Huggins Last Filed: 03/26/25 07:58> VTE Risk Level:: Medical - moderate - high <JORGE Huggins Last Filed: 03/26/25 07:58> VTE Device Contraindication: N/A - Device Ordered <Desean Landry PA-C - Last Filed: 03/26/25 07:58> VTE Drug Contraindication: N/A - Med Ordered <Desean Landry PA-C - Last Filed: 03/26/25 07:58>
[2025-03-26] MEDS: iohexoL 350 MG/ML 100 ML INFUS..BTL IV (10:22)
[2025-03-26 12:00] VITALS: BP 146/68; PULSE 74; RESP 18; TEMP 37; O2SAT 98
--- NOTE | 2025-03-26 14:01 | MHC.CM.PN ---
EMR REVIEWED. PT IS NOT MEDICALLY CLEARED FOR DC HOME (ADVANCING DIET SLOWLY, TOLERATING CLEAR LIQUIDS) CM WILL CONTINUE TO FOLLOW FOR ANY CHANGE TO DC PLAN/NEEDS.
[2025-03-26 15:14] VITALS: BP 145/58; PULSE 77; RESP 18; TEMP 37.1; O2SAT 98
[2025-03-26 19:36] VITALS: BP 142/65; PULSE 74; RESP 18; TEMP 36.6; O2SAT 98
[2025-03-26] MEDS: 0.9 % Sodium Chloride Flush 3 ML SYRINGE IVFLUSH (23:55)
[2025-03-27] VITALS: BP 141/73; PULSE 68; RESP 18; TEMP 36.7; O2SAT 97
[2025-03-27 03:44] VITALS: BP 143/71; PULSE 63; RESP 18; TEMP 37.1; O2SAT 99
--- NOTE | 2025-03-27 07:19 | P.PNGS_ITS ---
Subjective Subjective Date of Service: 03/27/25 <Desean Landry PA-C - Last Filed: 03/27/25 07:29> 03/27/25 <Kishan Lees MD - Last Filed: 03/27/25 08:06> Interval history: Early this morning developed lower abdominal pain with associated nausea, multiple episodes of diarrhea, reporting subjective chills. Diet was advanced yesterday afternoon, states she tolerated this well <Desean Landry PA-C - Last Filed: 03/27/25 07:29> Physical Exam 2 Vital Signs: Vital Signs: Last Vital Signs Temp 98.7 F 03/27/25 03:44 Pulse 63 03/27/25 03:44 Resp 18 03/27/25 03:44 BP 143/71 H 03/27/25 03:44 Pulse Ox 99 03/27/25 03:44 O2 Del Method Room Air 03/27/25 03:44 O2 Flow Rate 95 03/26/25 00:00 BMI result Body Mass Index 27.1 <Desean Landry PA-C - Last Filed: 03/27/25 07:29> Const: General: no acute distress <Desean Landry PA-C - Last Filed: 03/27/25 07:29> Orientation/consciousness: patient oriented x3 <JORGE Huggins Last Filed: 03/27/25 07:29> Resp: Effort & Inspection: normal respiratory effort and able to speak in complete sentences <JORGE Huggins Last Filed: 03/27/25 07:29> GI: Inspection: No distended <Desean Landry PA-C - Last Filed: 03/27/25 07:29> Palpation (GI): Soft to palpation, Tenderness to palpation present (GI) in the LLQ and no guarding <Desean Landry PA-C - Last Filed: 03/27/25 07:29> Neuro: General: patient oriented x3 <JORGE Huggins Last Filed: 03/27/25 07:29> Objective Data Active Medications Acetaminophen (Acetaminophen 325 Mg Tablet) 650 mg PO Q6H PRN PRN Reason: Pain, Mild 1-3,fever,headache Last Admin: 03/27/25 04:31 Dose: 650 mg Documented By: REJI Amlodipine Besylate (Amlodipine Besylate 5 Mg Tablet) 5 mg PO DAILY [facility]; Protocol Last Admin: 03/26/25 08:05 Dose: 5 mg Documented By: JORDAN Calcium Carbonate (Calcium Carbonate 750 Mg Tab.Chew) 750 mg PO Q4H PRN PRN Reason: Heartburn Heparin Sodium (Porcine) (Heparin Sodium,Porcine 5,000 Unit/Ml Vial) 5,000 unit SUBCUT Q8H [facility] Last Admin: 03/27/25 05:24 Dose: Not Given Documented By: REJI Non-Admin Reason: Patient Refused Piperacillin Sod/Tazobactam (Sod 3.375 gm/ Sodium Chloride) 50 mls @ 100 mls/hr IV Q6H [facility] Last Infusion: 03/27/25 05:33 Dose: Infused Documented By: REJI Melatonin (Melatonin 3 Mg Tablet) 6 mg PO BEDTIME PRN PRN Reason: Insomnia Morphine Sulfate (Morphine Sulfate 4 Mg/Ml Cartridge) 2 mg IVPUSH Q4H PRN; Protocol PRN Reason: Pain, Severe (Pain Scale 7-10) Omeprazole (Omeprazole 20 Mg Capsule.Dr) 20 mg PO DAILY [facility] Last Admin: 03/26/25 08:04 Dose: 20 mg Documented By: JORDAN Ondansetron HCl (Ondansetron Hcl 4 Mg/2 Ml Vial) 4 mg IVPUSH Q6H PRN PRN Reason: nausea Last Admin: 03/27/25 05:28 Dose: 4 mg Documented By: REJI Sodium Chloride (0.9 % Sodium Chloride Flush 3 Ml Syringe) 3 ml IVFLUSH QSHIFT [facility] Last Admin: 03/26/25 23:55 Dose: 3 ml Documented By: REJI <Desean Landry PA-C - Last Filed: 03/27/25 07:29> Labs CBC & Chem 7: 03/25/25 05:22 03/25/25 05:22 <Desean Landry PA-C - Last Filed: 03/27/25 07:29> Microbiology Microbiology Results: Microbiology 03/24/25 17:34 Blood Culture - Preliminary Blood - Venous No growth after 48 hours. 03/24/25 17:20 Urine Culture - Final Urine clean catch - Clean Catch Midstream 03/24/25 17:34 Blood Culture - Preliminary Blood - Venous Prelim: GNR Gram Stain only <Desean Landry PA-C - Last Filed: 03/27/25 07:29> Procedures Date of Service Date of Service: 03/27/25 <Desean Landry PA-C - Last Filed: 03/27/25 07:29> 03/27/25 <Kihsan Lees MD - Last Filed: 03/27/25 08:06> Progress Note: A&P Assessment and plan (1) Diverticulitis: Status: Acute <Desean Landry PA-C - Last Filed: 03/27/25 07:29> Assessment and Plan: Says she started to have diarrhea at 04:30 this morning Some lower abdominal pain Looks well overall Abdomen is soft and benign Check stools for C diff Okay to have sips of clear liquids Continue antibiotics IV fluid Seen and examined independently <Kishan Lees MD - Last Filed: 03/27/25 08:06> Assessment and Plan: 69 year old female admitted for diverticulitis with microperforation, treating conservatively with bowel rest and abx. Began having increased pain in the lower abdomen, multiple episodes of diarrhea, nausea. CT yesterday showing some improvement, with a more consolidated phelgmon with microperforations, no abscess formation. Diet was advanced to regular diet yesterday, initially tolerated well without symptoms. Will order repeat CBC this morning. Diet now NPO. Recommended she get out of bed and walk. pending labs, will continue to monitor her condition, if continuing to worsen may need to go ahead with surgical intervention repeat labs continue IV abx NPO ambulation as tolerated <Desean Landry PA-C - Last Filed: 03/27/25 07:29> Time Spent With Patient Time: Total time managing care of this patient today ____ minutes. <Desean Landry PA-C - Last Filed: 03/27/25 07:29> Quality Stroke Does the patient have a stroke diagnosis?: No <Desean Landry PA-C - Last Filed: 03/27/25 07:29> VTE Prior VTE?: No <JORGE Huggins Last Filed: 03/27/25 07:29> VTE Risk Level:: Medical - moderate - high <Desean Landry PA-C - Last Filed: 03/27/25 07:29> VTE Device Contraindication: N/A - Device Ordered <Desean Landry PA-C - Last Filed: 03/27/25 07:29> VTE Drug Contraindication: N/A - Med Ordered <Desean Landry PA-C - Last Filed: 03/27/25 07:29>
[2025-03-27] MEDS: 0.9 % Sodium Chloride Flush 3 ML SYRINGE IVFLUSH ×2 (07:38→22:55)
[2025-03-27 08:05] LABS: Hematocrit 36.1 % (37.0-47.0); Hemoglobin 12.8 g/dl (12.0-16.0); Mean Corpuscular HGB Conc 35.5 g/dl (31.0-35.0); Mean Corpuscular Hemoglobin 32.5 pg (27.0-33.0); Mean Corpuscular Volume 91.6 fL (80.0-98.0); NRBC Abs Auto 0.000 X10*3/uL (0.0-0.012); NRBC Pct Auto 0.0 /100WBC (0.0-0.2); Platelet Count 334 X10*3/uL (160-400); Red Blood Count 3.94 X10*6/uL (4.20-5.50); White Blood Count 12.2 X10*3/uL (4.8-10.8)
[2025-03-27 08:10] VITALS: BP 136/64; PULSE 79; RESP 12; TEMP 36.8; O2SAT 97
[2025-03-27 09:55] LABS: CDiff Gene PCR NEGATIVE (Negative)
[2025-03-27] MEDS: Lactated Ringers 1,000 ML 80 ML IVCONT (12:30)
[2025-03-27 16:02] VITALS: BP 121/59; PULSE 78; RESP 12; TEMP 36.9; O2SAT 96
[2025-03-27 19:57] VITALS: BP 104/51; PULSE 74; RESP 18; TEMP 36.8; O2SAT 94
[2025-03-28] VITALS (7 sets, daily range): BP systolic 101–134; BP diastolic 52–63; PULSE 72–95; RESP 18; TEMP 35.9–37.1; O2SAT 95–98
[2025-03-28] MEDS: Lactated Ringers 1,000 ML 80 ML IVCONT ×3 (00:07→22:39)
--- NOTE | 2025-03-28 07:51 | PM.PNGS ---
Subjective Subjective Date of Service: 03/28/25 <Dseean Landry PA-C - Last Filed: 03/28/25 07:57> 03/28/25 <Kishan Lees MD - Last Filed: 03/28/25 09:37> Interval history: Doing okay today. Subjectively feels a little bit better. Was woken up again with diarrhea. Complaining of some pain in the lower abdomen. Tolerating clear liquid diet without nausea <Desean Landry PA-C - Last Filed: 03/28/25 07:57> Physical Exam Vital Signs: Vital Signs: Last Vital Signs Temp 97.8 F 03/28/25 03:37 Pulse 95 03/28/25 03:37 Resp 18 03/28/25 03:37 BP 134/62 03/28/25 03:37 Pulse Ox 98 03/28/25 03:37 O2 Del Method Room Air 03/28/25 03:37 O2 Flow Rate 95 03/26/25 00:00 BMI result Body Mass Index 27.1 <JORGE Huggins Last Filed: 03/28/25 07:57> Const: General: comfortable and no acute distress <Desean Landry PA-C - Last Filed: 03/28/25 07:57> Orientation/consciousness: patient oriented x3 <JORGE Huggins Last Filed: 03/28/25 07:57> Resp: Effort & Inspection: normal respiratory effort and able to speak in complete sentences <Desean Landry PA-C - Last Filed: 03/28/25 07:57> GI: Inspection: Yes normal to inspection and No distended <Desean Landry PA-C - Last Filed: 03/28/25 07:57> Palpation (GI): Soft to palpation, not firm, Tenderness to palpation present (GI) (Tender throughout the lower abdomen) and not rigid <JORGE Huggins Last Filed: 03/28/25 07:57> Neuro: General: patient oriented x3 <JORGE Huggins Last Filed: 03/28/25 07:57> Objective Data Active Medications Acetaminophen (Acetaminophen 325 Mg Tablet) 650 mg PO Q6H PRN PRN Reason: Pain, Mild 1-3,fever,headache Last Admin: 03/27/25 23:05 Dose: 650 mg Documented By: REJI Amlodipine Besylate (Amlodipine Besylate 5 Mg Tablet) 5 mg PO DAILY [facility]; Protocol Last Admin: 03/27/25 07:37 Dose: 5 mg Documented By: JENNIFER Calcium Carbonate (Calcium Carbonate 750 Mg Tab.Chew) 750 mg PO Q4H PRN PRN Reason: Heartburn Heparin Sodium (Porcine) (Heparin Sodium,Porcine 5,000 Unit/Ml Vial) 5,000 unit SUBCUT Q8H [facility] Last Admin: 03/28/25 05:32 Dose: Not Given Documented By: REJI Non-Admin Reason: Patient Refused Piperacillin Sod/Tazobactam (Sod 3.375 gm/ Sodium Chloride) 50 mls @ 100 mls/hr IV Q6H [facility] Last Infusion: 03/28/25 05:53 Dose: Infused Documented By: REJI Lactated Ringer's (Lr) 1,000 mls @ 80 mls/hr IVCONT .[id number] [facility] Last Admin: 03/28/25 00:07 Dose: 80 mls/hr Documented By: REJI Melatonin (Melatonin 3 Mg Tablet) 6 mg PO BEDTIME PRN PRN Reason: Insomnia Morphine Sulfate (Morphine Sulfate 4 Mg/Ml Cartridge) 2 mg IVPUSH Q4H PRN; Protocol PRN Reason: Pain, Severe (Pain Scale 7-10) Last Admin: 03/27/25 16:12 Dose: 2 mg Documented By: JENNIFER Omeprazole (Omeprazole 20 Mg Capsule.Dr) 20 mg PO DAILY [facility] Last Admin: 03/27/25 07:38 Dose: 20 mg Documented By: JENNIFER Ondansetron HCl (Ondansetron Hcl 4 Mg/2 Ml Vial) 4 mg IVPUSH Q6H PRN PRN Reason: nausea Last Admin: 03/28/25 05:29 Dose: 4 mg Documented By: REJI Sodium Chloride (0.9 % Sodium Chloride Flush 3 Ml Syringe) 3 ml IVFLUSH QSHIFT [facility] Last Admin: 03/28/25 07:00 Dose: Not Given Documented By: SUN Non-Admin Reason: IV Running <Desean Landry PA-C - Last Filed: 03/28/25 07:57> Labs CBC & Chem 7: 03/27/25 07:53 03/25/25 05:22 <Desean Landry PA-C - Last Filed: 03/28/25 07:57> Labs: Laboratory Results - last 24 hr 03/27/25 03/27/25 07:53 08:34 MCV 91.6 MCH 32.5 MCHC 35.5 H RDW 12.8 Plt Count 334 D MPV 9.7 Absolute Nucleated RBC 0.000 Nucleated RBC % (auto) 0.0 C. difficile Tox B Gene NEGATIVE <Desean Landry PA-C - Last Filed: 03/28/25 07:57> Microbiology Microbiology Results: Microbiology 03/24/25 17:34 Blood Culture - Preliminary Blood - Venous Anaerobic gram negative rods <Desean Landry PA-C - Last Filed: 03/28/25 07:57> Procedures Date of Service Date of Service: 03/28/25 <Desean Landry PA-C - Last Filed: 03/28/25 07:57> 03/28/25 <Kishan Lees MD - Last Filed: 03/28/25 09:37> Progress Note: A&P Assessment and plan (1) Diverticulitis: Status: Acute <Desean Landry PA-C - Last Filed: 03/28/25 07:57> Assessment and Plan: Complains of diarrhea this morning No fever Looks well overall Abdomen is soft and benign C diff negative Diarrhea likely antibiotic related We will keep on clear liquids for now Clinically doing well Continue IV antibiotics Seen and examined independently <Kishan Lees MD - Last Filed: 03/28/25 09:37> Assessment and Plan: 69 year old female admitted for diverticulitis with microperforation, treating conservatively with bowel rest and abx. Feels a little better today but continues to have some pain in the lower abdomen, was woken up this morning by more diarrhea. Cdiff PCR negative yesterday. She is tolerating clear liquid diet without nausea. Will continue CLD for now. Abdomen soft, tender throughout the lower abdomen. Recommended she get out of bed and walk. We will continue to monitor her condition, if continuing to worsen may need to go ahead with surgical intervention repeat labs this AM continue IV abx Clear liquid diet ambulation as tolerated <Desean Landry PA-C - Last Filed: 03/28/25 07:57> Time Spent With Patient Time: Total time managing care of this patient today ____ minutes. <Desean Landry PA-C - Last Filed: 03/28/25 07:57> Quality Stroke Does the patient have a stroke diagnosis?: No <Desean Landry PA-C - Last Filed: 03/28/25 07:57> VTE Prior VTE?: No <Desean Landry PA-C - Last Filed: 03/28/25 07:57> VTE Risk Level:: Medical - moderate - high <Desean Landry PA-C - Last Filed: 03/28/25 07:57> VTE Device Contraindication: N/A - Device Ordered <Desean Landry PA-C - Last Filed: 03/28/25 07:57> VTE Drug Contraindication: N/A - Med Ordered <Desean Landry PA-C - Last Filed: 03/28/25 07:57>
[2025-03-28 09:59] LABS: Hematocrit 32.7 % (37.0-47.0); Hemoglobin 11.5 g/dl (12.0-16.0); Mean Corpuscular HGB Conc 35.2 g/dl (31.0-35.0); Mean Corpuscular Hemoglobin 33.0 pg (27.0-33.0); Mean Corpuscular Volume 93.7 fL (80.0-98.0); NRBC Abs Auto 0.000 X10*3/uL (0.0-0.012); NRBC Pct Auto 0.0 /100WBC (0.0-0.2); Platelet Count 321 X10*3/uL (160-400); Red Blood Count 3.49 X10*6/uL (4.20-5.50); White Blood Count 14.1 X10*3/uL (4.8-10.8)
[2025-03-28 10:47] LABS: Anion Gap 8 (12-20); Blood Urea Nitrogen 8 mg/dL (9-16); Calcium 8.2 mg/dL (8.4-10.2); Carbon Dioxide 29 mmol/L (22-29); Chloride 107 mmol/L (96-108); Creatinine Clr Calc Pharmacy 88.0; Estimated Glomerular Filt Rate > 60; Potassium 3.2 mmol/L (3.3-5.1); Sodium 141 mmol/L (135-145)
--- NOTE | 2025-03-28 15:36 | PM.EVENT ---
Event Note Date of Service: 03/28/25 Event Note: Has had no fever Abdomen remains soft and benign Some diarrhea Clinically looks well 1/2 initial blood cultures positive, likely contaminant Would keep on clear liquids for now in view of diarrhea She understands low possibility of requiring surgical resection if she worsens clinically May need to have a follow up CAT scan on Monday Family updated Time Spent With Patient Time: Total time managing care of this patient today ____ minutes.
--- NOTE | 2025-03-28 19:17 | MHC.PIE ---
Addendum entered by Karina Patricia RN 03/28/25 20:24: p; pt cont to c/o pain 04/04. pt also c/o n/v - note; prn zofran given at 1600 by previous shift i; dr mckeon notified - new order toradol q6 prn, reglan iv once e; will cont to monitor Original Note: p; pt c/o pain 04/04, pt refusing morphine for pain d/t makes me sick . i; dr mckeon notifiedd - now new orders at this time e; will cont to monitor
[2025-03-28] MEDS: 0.9 % Sodium Chloride Flush 3 ML SYRINGE IVFLUSH (20:15)
--- NOTE | 2025-03-28 22:30 | MHC.PIE ---
Addendum entered by Karina Patricia RN 03/28/25 23:03: e; pt now asleep comfortably, will cont to monitor Original Note: p; pt reports pain 01/02 post toradol, pt also reports diarrhea. i; dr mckeon notified. e; awaiting orders. will cont to monitor
[2025-03-29 03:33] VITALS: BP 121/58; PULSE 88; RESP 18; TEMP 36.4; O2SAT 96
[2025-03-29 07:47] VITALS: BP 144/63; PULSE 80; RESP 20; TEMP 36.6; O2SAT 99
[2025-03-29] MEDS: Lactated Ringers 1,000 ML 80 ML IVCONT ×2 (09:49→23:38)
[2025-03-29 12:00] VITALS: BP 135/60; PULSE 86; RESP 18; TEMP 36.9; O2SAT 94
[2025-03-29 15:47] VITALS: BP 132/63; PULSE 88; RESP 18; TEMP 37.2; O2SAT 96
--- NOTE | 2025-03-29 17:48 | PM.PNGS ---
Subjective Subjective Date of Service: 03/29/25 Interval history: pt is doing much better - feeling less pain - hungry wants to try something more but a little scared to eat - still with loose stools - last set was diff negative Physical Exam Vital Signs: Vital Signs: Last Vital Signs Temp 98.9 F 03/29/25 15:47 Pulse 88 03/29/25 15:47 Resp 18 03/29/25 15:47 BP 132/63 03/29/25 15:47 Pulse Ox 96 03/29/25 15:47 O2 Del Method Room Air 03/29/25 15:47 O2 Flow Rate 95 03/26/25 00:00 BMI result Body Mass Index 27.1 Const: General: cooperative, healthy appearing, comfortable, no acute distress and well developed GI: Other: abdomen soft nontender nondistended active bowel sounds Objective Data Active Medications Acetaminophen (Acetaminophen 325 Mg Tablet) 650 mg PO Q6H PRN PRN Reason: Pain, Mild 1-3,fever,headache Last Admin: 03/28/25 11:42 Dose: 650 mg Amlodipine Besylate (Amlodipine Besylate 5 Mg Tablet) 5 mg PO DAILY [facility]; Protocol Last Admin: 03/29/25 08:01 Dose: 5 mg Documented By: HANK Calcium Carbonate (Calcium Carbonate 750 Mg Tab.Chew) 750 mg PO Q4H PRN PRN Reason: Heartburn Heparin Sodium (Porcine) (Heparin Sodium,Porcine 5,000 Unit/Ml Vial) 5,000 unit SUBCUT Q8H [facility] Last Admin: 03/29/25 14:11 Dose: Not Given Documented By: HANK Non-Admin Reason: Patient Refused Piperacillin Sod/Tazobactam (Sod 3.375 gm/ Sodium Chloride) 50 mls @ 100 mls/hr IV Q6H [facility] Last Infusion: 03/29/25 17:41 Dose: Infused Documented By: HANK Ketorolac Tromethamine (Ketorolac Tromethamine 30 Mg/Ml Vial) 30 mg IVPUSH Q6H PRN PRN Reason: Pain, Moderate(Pain Scale 4-6) Stop: 04/02/25 19:47 Last Admin: 03/29/25 16:18 Dose: 30 mg Documented By: HANK Melatonin (Melatonin 3 Mg Tablet) 6 mg PO BEDTIME PRN PRN Reason: Insomnia Omeprazole (Omeprazole 20 Mg Capsule.) 20 mg PO DAILY [facility] Last Admin: 03/29/25 08:01 Dose: 20 mg Documented By: HANK Ondansetron HCl (Ondansetron Hcl 4 Mg/2 Ml Vial) 4 mg IVPUSH Q6H PRN PRN Reason: nausea Last Admin: 03/28/25 16:02 Dose: 4 mg Documented By: SUN Sodium Chloride (0.9 % Sodium Chloride Flush 3 Ml Syringe) 3 ml IVFLUSH QSHIFT [facility] Last Admin: 03/29/25 15:14 Dose: Not Given Documented By: HANK Non-Admin Reason: IV Running Labs 03/28/25 09:21 03/28/25 10:12 Microbiology Microbiology Results: Microbiology 03/24/25 17:34 Blood Culture - Preliminary Blood - Venous Anaerobic gram negative rods Procedures Date of Service Date of Service: 03/29/25 Progress Note: A&P Assessment and plan (1) Diverticulitis: Status: Acute Plan 69 year old female with diverticulitis/phelgmon improving - still with some loose/diarrhea stools - cont with iv antibiotics, ivf for hydration but trial of some toast etc. will check labs in am and if improved and clinical picture better witll do some advancement in po solid food. She agrees with the plan Time Spent With Patient Time: Total time managing care of this patient today ____ minutes. Quality Stroke Does the patient have a stroke diagnosis?: No VTE Prior VTE?: No VTE Risk Level:: Medical - moderate - high VTE Device Contraindication: N/A - Device Ordered VTE Drug Contraindication: N/A - Med Ordered
[2025-03-29 19:55] VITALS: BP 137/63; PULSE 81; RESP 18; TEMP 36.9; O2SAT 94
[2025-03-29] MEDS: 0.9 % Sodium Chloride Flush 3 ML SYRINGE IVFLUSH (23:03)
[2025-03-30] VITALS (7 sets, daily range): BP systolic 131–151; BP diastolic 60–67; PULSE 80–87; RESP 14–18; TEMP 36.4–36.9; O2SAT 93–97
[2025-03-30 05:57] LABS: MANUAL DIFF FLAG NO
[2025-03-30 06:12] LABS: Hematocrit 29.5 % (37.0-47.0); Hemoglobin 10.6 g/dl (12.0-16.0); Imm Gran Abs Auto 0.09 X10*3/uL (0.00-0.03); Imm Gran Pct Auto 0.7 % (0.0-0.4); Lymphocytes Absolute Auto 1.3 X10*3/uL (1.2-4.9); Mean Corpuscular HGB Conc 35.9 g/dl (31.0-35.0); Mean Corpuscular Hemoglobin 32.8 pg (27.0-33.0); Mean Corpuscular Volume 91.3 fL (80.0-98.0); NRBC Abs Auto 0.000 X10*3/uL (0.0-0.012); NRBC Pct Auto 0.0 /100WBC (0.0-0.2); Platelet Count 339 X10*3/uL (160-400); Red Blood Count 3.23 X10*6/uL (4.20-5.50); White Blood Count 12.2 X10*3/uL (4.8-10.8)
[2025-03-30] MEDS: Dextrose 5 % and Lactated Ring 1,000 ML 100 ML IVCONT (14:25)
--- NOTE | 2025-03-30 15:19 | PM.PNGS ---
Subjective Subjective Date of Service: 03/31/25 Interval history: Overall the patient is doing okay but not feeling like she is improving. So she does not have very much of an appetite and still having a lot of loose stools. C diff was checked twice and negative twice. She has been afraid to eat because she felt that she was doing better and then got worse after she ate. Afebrile white count still in the 12 range. Also still complaining of nausea Physical Exam Vital Signs: Vital Signs: Last Vital Signs Temp 98.4 F 03/30/25 15:10 Pulse 87 03/30/25 15:10 Resp 14 03/30/25 15:10 BP 148/67 H 03/30/25 15:10 Pulse Ox 97 03/30/25 15:10 O2 Del Method Room Air 03/30/25 15:10 O2 Flow Rate 95 03/26/25 00:00 BMI result Body Mass Index 27.1 Const: General: cooperative, healthy appearing, comfortable and no acute distress Resp: Effort & Inspection: normal respiratory effort Auscultation: clear to auscultation bilaterally Cardio: Rate: regular rate Rhythm: regular rhythm GI: Other: Abdomen is soft maybe little distended not very tender to palpation does have bowel sounds Objective Data Active Medications Acetaminophen (Acetaminophen 325 Mg Tablet) 650 mg PO Q6H PRN PRN Reason: Pain, Mild 1-3,fever,headache Last Admin: 03/28/25 11:42 Dose: 650 mg Amlodipine Besylate (Amlodipine Besylate 5 Mg Tablet) 5 mg PO DAILY [facility]; Protocol Last Admin: 03/30/25 07:29 Dose: 5 mg Documented By: HANK Calcium Carbonate (Calcium Carbonate 750 Mg Tab.Chew) 750 mg PO Q4H PRN PRN Reason: Heartburn Heparin Sodium (Porcine) (Heparin Sodium,Porcine 5,000 Unit/Ml Vial) 5,000 unit SUBCUT Q8H [facility] Last Admin: 03/30/25 14:27 Dose: Not Given Documented By: HANK Non-Admin Reason: Patient Refused Piperacillin Sod/Tazobactam (Sod 3.375 gm/ Sodium Chloride) 50 mls @ 100 mls/hr IV Q6H [facility] Last Infusion: 03/30/25 11:58 Dose: Infused Documented By: HANK Dextrose/Lactated Ringer's (D5lr) 1,000 mls @ 100 mls/hr IVCONT .Q10H [facility] Last Admin: 03/30/25 14:25 Dose: 100 mls/hr Documented By: HAKN Ketorolac Tromethamine (Ketorolac Tromethamine 30 Mg/Ml Vial) 30 mg IVPUSH Q6H PRN PRN Reason: Pain, Moderate(Pain Scale 4-6) Stop: 04/02/25 19:47 Last Admin: 03/30/25 10:18 Dose: 30 mg Documented By: HANK Melatonin (Melatonin 3 Mg Tablet) 6 mg PO BEDTIME PRN PRN Reason: Insomnia Metoclopramide HCl (Metoclopramide Hcl 10 Mg/2 Ml Vial) 10 mg IVPUSH Q6H [facility] Stop: 04/01/25 14:59 Last Admin: 03/30/25 14:27 Dose: 10 mg Documented By: HANK Omeprazole (Omeprazole 20 Mg Capsule.Dr) 20 mg PO DAILY [facility] Last Admin: 03/30/25 07:29 Dose: 20 mg Documented By: HANK Ondansetron HCl (Ondansetron Hcl 4 Mg/2 Ml Vial) 4 mg IVPUSH Q6H PRN PRN Reason: nausea Last Admin: 03/30/25 04:56 Dose: 4 mg Documented By: ZENA Sodium Chloride (0.9 % Sodium Chloride Flush 3 Ml Syringe) 3 ml IVFLUSH QSHIFT [facility] Last Admin: 03/30/25 14:37 Dose: Not Given Documented By: HANK Non-Admin Reason: IV Running Labs 03/30/25 05:10 03/30/25 14:21 Labs: Laboratory Results - last 24 hr 03/30/25 05:10 MCV 91.3 MCH 32.8 MCHC 35.9 H RDW 12.9 Plt Count 339 MPV 10.3 Immature Gran % (Auto) 0.7 H Neut % (Auto) 81.7 H Lymph % (Auto) 10.7 L [place] % (Auto) 6.0 Eos % (Auto) 0.7 Baso % (Auto) 0.2 Lymph # (Auto) 1.3 [place] # (Auto) 0.7 Eos # (Auto) 0.1 Baso # (Auto) 0.0 Abs Immat Gran (auto) 0.09 H Absolute Neuts (auto) 10.0 H Absolute Nucleated RBC 0.000 Nucleated RBC % (auto) 0.0 Microbiology Microbiology Results: Microbiology 03/24/25 17:34 Blood Culture - Preliminary Blood - Venous Anaerobic gram negative rods 03/24/25 17:34 Blood Culture - Final Blood - Venous No growth after 5 days. Procedures Date of Service Date of Service: 03/31/25 Progress Note: A&P Assessment and plan (1) Diverticulitis: Status: Acute Assessment and Plan: 69-year-old female with diverticulitis with pelvic phlegmon not true abscess. Subjectively she feels like she is not improving but I think clinically she looks okay. Her diarrhea is probably secondary to the inflammation of her colon 2 C diff cultures were negative. She currently is on IV Zosyn. Her white count is 12 and her potassium is little low so this will be replaced p.o. today. Her nausea I think maybe secondary to some of the pain meds antibiotics but she also has a moderate hiatal hernia and maybe this is being more symptomatic now that she has the present ongoing illness. Extensive discussion was had with the patient and her [id number] who is a physical therapist about they are concerned that she is not much improved. She did have repeat CAT scan that did not show any true abscess or worsening of her pathology. There maybe a benefit to repeat the CAT scan on Monday and determine if there something that can be drained. Clinically her abdominal exam is improved. Plan to continue with a clear liquids maybe little toe stiff she feels up to it continue with the IV Zosyn but may consider switching that if we think that it is increasing her nausea issues and diarrhea. Time Spent With Patient Time: Total time managing care of this patient today ____ minutes. Quality Stroke Does the patient have a stroke diagnosis?: No VTE Prior VTE?: No VTE Risk Level:: Medical - moderate - high VTE Device Contraindication: N/A - Device Ordered VTE Drug Contraindication: N/A - Med Ordered
[2025-03-30 15:35] LABS: Anion Gap 15 (12-20); Blood Urea Nitrogen 5 mg/dL (9-16); Calcium 8.3 mg/dL (8.4-10.2); Carbon Dioxide 22 mmol/L (22-29); Chloride 108 mmol/L (96-108); Creatinine Clr Calc Pharmacy 107.1; Estimated Glomerular Filt Rate > 60; Magnesium 1.9 mg/dL (1.6-2.6); Potassium 2.9 mmol/L (3.3-5.1); Sodium 142 mmol/L (135-145)
[2025-03-30 16:14] LABS: CDiff Gene PCR NEGATIVE (Negative)
[2025-03-30] MEDS: Potassium Chloride Packet 20 MEQ PACKET 40 MEQ PO ×2 (16:47→21:42)
[2025-03-31] MEDS: 0.9 % Sodium Chloride Flush 3 ML SYRINGE IVFLUSH ×2 (00:45→08:29)
[2025-03-31] MEDS: Dextrose 5 % and Lactated Ring 1,000 ML 100 ML IVCONT ×2 (02:21→11:57)
[2025-03-31 03:48] VITALS: BP 169/74; PULSE 78; RESP 17; TEMP 36.1; O2SAT 94
[2025-03-31 06:33] LABS: MANUAL DIFF FLAG NO
[2025-03-31 06:46] LABS: Hematocrit 31.0 % (37.0-47.0); Hemoglobin 11.1 g/dl (12.0-16.0); Imm Gran Abs Auto 0.09 X10*3/uL (0.00-0.03); Imm Gran Pct Auto 0.9 % (0.0-0.4); Lymphocytes Absolute Auto 1.2 X10*3/uL (1.2-4.9); Mean Corpuscular HGB Conc 35.8 g/dl (31.0-35.0); Mean Corpuscular Hemoglobin 32.6 pg (27.0-33.0); Mean Corpuscular Volume 90.9 fL (80.0-98.0); NRBC Abs Auto 0.000 X10*3/uL (0.0-0.012); NRBC Pct Auto 0.0 /100WBC (0.0-0.2); Platelet Count 390 X10*3/uL (160-400); Red Blood Count 3.41 X10*6/uL (4.20-5.50); White Blood Count 9.6 X10*3/uL (4.8-10.8)
--- NOTE | 2025-03-31 07:25 | PM.PNGS ---
Subjective Subjective Date of Service: 03/31/25 <Desean Landry PA-C - Last Filed: 03/31/25 08:11> 03/31/25 <Kishan Lees MD - Last Filed: 03/31/25 10:14> Interval history: continues to have some mild lower abdominal pain, frequent episodes of diarrhea, nausea. denies any issues urinating. has been OOB ambulating. She is tolerating CLD, has had some toast but afraid to advance to regular <Desean Landry PA-C - Last Filed: 03/31/25 08:11> Physical Exam Vital Signs: Vital Signs: Last Vital Signs Temp 96.9 F 03/31/25 03:48 Pulse 78 03/31/25 03:48 Resp 17 03/31/25 03:48 BP 169/74 H 03/31/25 03:48 Pulse Ox 94 03/31/25 03:48 O2 Del Method Room Air 03/31/25 03:48 O2 Flow Rate 95 03/26/25 00:00 BMI result Body Mass Index 27.1 <Desean Landry PA-C - Last Filed: 03/31/25 08:11> Const: General: comfortable and no acute distress <Desean Landry PA-C - Last Filed: 03/31/25 08:11> Resp: Effort & Inspection: normal respiratory effort and able to speak in complete sentences <Desean Landry PA-C - Last Filed: 03/31/25 08:11> GI: Inspection: No distended <Desean Landry PA-C - Last Filed: 03/31/25 08:11> Palpation (GI): Soft to palpation, Tenderness to palpation present (GI) (mild lower abdomen) and no guarding <Desean Landry PA-C - Last Filed: 03/31/25 08:11> Objective Data Active Medications Acetaminophen (Acetaminophen 325 Mg Tablet) 650 mg PO Q6H PRN PRN Reason: Pain, Mild 1-3,fever,headache Last Admin: 03/28/25 11:42 Dose: 650 mg Amlodipine Besylate (Amlodipine Besylate 5 Mg Tablet) 5 mg PO DAILY [facility]; Protocol Last Admin: 03/30/25 07:29 Dose: 5 mg Documented By: HANK Calcium Carbonate (Calcium Carbonate 750 Mg Tab.Chew) 750 mg PO Q4H PRN PRN Reason: Heartburn Heparin Sodium (Porcine) (Heparin Sodium,Porcine 5,000 Unit/Ml Vial) 5,000 unit SUBCUT Q8H [facility] Last Admin: 03/31/25 06:45 Dose: Not Given Documented By: CASSIE Non-Admin Reason: Patient Refused Piperacillin Sod/Tazobactam (Sod 3.375 gm/ Sodium Chloride) 50 mls @ 100 mls/hr IV Q6H [facility] Last Infusion: 03/31/25 06:46 Dose: Infused Documented By: CASSIE Dextrose/Lactated Ringer's (D5lr) 1,000 mls @ 100 mls/hr IVCONT .Q10H [facility] Last Admin: 03/31/25 02:21 Dose: 100 mls/hr Documented By: CASSIE Ketorolac Tromethamine (Ketorolac Tromethamine 30 Mg/Ml Vial) 30 mg IVPUSH Q6H PRN PRN Reason: Pain, Moderate(Pain Scale 4-6) Stop: 04/02/25 19:47 Last Admin: 03/30/25 10:18 Dose: 30 mg Documented By: HANK Melatonin (Melatonin 3 Mg Tablet) 6 mg PO BEDTIME PRN PRN Reason: Insomnia Metoclopramide HCl (Metoclopramide Hcl 10 Mg/2 Ml Vial) 10 mg IVPUSH Q6H [facility] Stop: 04/01/25 14:59 Last Admin: 03/31/25 02:20 Dose: 10 mg Documented By: CASSIE Omeprazole (Omeprazole 20 Mg Capsule.Dr) 20 mg PO DAILY [facility] Last Admin: 03/30/25 07:29 Dose: 20 mg Documented By: HANK Ondansetron HCl (Ondansetron Hcl 4 Mg/2 Ml Vial) 4 mg IVPUSH Q6H PRN PRN Reason: nausea Last Admin: 03/30/25 04:56 Dose: 4 mg Documented By: ZENA Sodium Chloride (0.9 % Sodium Chloride Flush 3 Ml Syringe) 3 ml IVFLUSH QSHIFT [facility] Last Admin: 03/31/25 00:45 Dose: 3 ml Documented By: CASSIE <Desean Landry PA-C - Last Filed: 03/31/25 08:11> Labs CBC & Chem 7: 03/31/25 05:55 03/31/25 05:55 <Desean Landry PA-C - Last Filed: 03/31/25 08:11> Labs: Laboratory Results - last 24 hr 03/30/25 03/30/25 03/31/25 14:21 15:20 05:55 MCV 90.9 MCH 32.6 MCHC 35.8 H RDW 12.6 Plt Count 390 MPV 10.1 Immature Gran % (Auto) 0.9 H Neut % (Auto) 78.9 H Lymph % (Auto) 12.3 L [place] % (Auto) 6.8 Eos % (Auto) 0.8 Baso % (Auto) 0.3 Lymph # (Auto) 1.2 [place] # (Auto) 0.7 Eos # (Auto) 0.1 Baso # (Auto) 0.0 Abs Immat Gran (auto) 0.09 H Absolute Neuts (auto) 7.6 Absolute Nucleated RBC 0.000 Nucleated RBC % (auto) 0.0 Anion Gap 15 Estim Creat Clear Calc 107.1 Estimated GFR > 60 Random Glucose 77 Calcium 8.3 L Magnesium 1.9 C. difficile Tox B Gene NEGATIVE <Desean Landry PA-C - Last Filed: 03/31/25 08:11> Microbiology Microbiology Results: Microbiology 03/24/25 17:34 Blood Culture - Preliminary Blood - Venous Anaerobic gram negative rods <Desean Landry PA-C - Last Filed: 03/31/25 08:11> Procedures Date of Service Date of Service: 03/31/25 <Desean Landry PA-C - Last Filed: 03/31/25 08:11> 03/31/25 <Kishan Lees MD - Last Filed: 03/31/25 10:14> Progress Note: A&P Assessment and plan (1) Diverticulitis: Status: Acute <Desean Landry PA-C - Last Filed: 03/31/25 08:11> Assessment and Plan: Main complaint is diarrhea No fever Abdomen is soft and very benign Looks well WBC down Patient waiting for a follow up CAT scan Replace potassiumm - loss was likely from diarrhea Seen and examined independently <Kishan Lees MD - Last Filed: 03/31/25 10:14> Assessment and Plan: 69 year old female with diverticulitis with microperforation, phelgmon on previous CT scan. Continues to feel as though she is not mproving. Experieincing diarrhea, nausea, mild lower abdominal pain. She has tolerated CLD, increase in symptoms. Has also had bland solids, tolerating. C Diff negative x2. WBC improved this morning. Will repeat CT scan today for possible abscess formation, will see if there is anything to drain. Hypokalemic yesterday, orally repleated, potassium again low, stable at 2.9, will replace orally today. On exam the abdomen is soft, very mildly tender in the lower abdomen. She looks well. Can possibly slowly advance diet pending CT results repeat CT abd pelvis today Potassium replacement 40 mg x2 repeat labs in AM continue IV fluids <Desean aLndry PA-C - Last Filed: 03/31/25 08:11> Time Spent With Patient Time: Total time managing care of this patient today ____ minutes. <Desean Landry PA-C - Last Filed: 03/31/25 08:11> Quality Stroke Does the patient have a stroke diagnosis?: No <JORGE Huggins Last Filed: 03/31/25 08:11> VTE Prior VTE?: No <JORGE Huggins Last Filed: 03/31/25 08:11> VTE Risk Level:: Medical - moderate - high <JORGE Huggins Last Filed: 03/31/25 08:11> VTE Device Contraindication: N/A - Device Ordered <JORGE Huggins Last Filed: 03/31/25 08:11> VTE Drug Contraindication: N/A - Med Ordered <JORGE Huggins Last Filed: 03/31/25 08:11>
[2025-03-31 07:33] VITALS: BP 153/70; PULSE 78; RESP 15; TEMP 36.9; O2SAT 93
[2025-03-31 07:39] LABS: Anion Gap 10 (12-20); Blood Urea Nitrogen 3 mg/dL (9-16); Calcium 8.2 mg/dL (8.4-10.2); Carbon Dioxide 25 mmol/L (22-29); Chloride 109 mmol/L (96-108); Creatinine Clr Calc Pharmacy 120.3; Estimated Glomerular Filt Rate > 60; Potassium 2.9 mmol/L (3.3-5.1); Sodium 141 mmol/L (135-145)
[2025-03-31] MEDS: Potassium Chloride Packet 20 MEQ PACKET 40 MEQ PO (08:55)
[2025-03-31] MEDS: iohexoL 350 MG/ML 100 ML INFUS..BTL 85 ML IV (09:20)
--- NOTE | 2025-03-31 10:14 | PM.EVENT ---
Event Note Date of Service: 04/01/25 Event Note: Cat scan reviewed - now has a an abscess in the area of phlegmonous changes in the pelvis Small locules of air in the upper abdomen consistent with micro She has had no fever Abdomen remained soft and very benign WBC now normal I explained to her that we will IR placed a drain into the pelvic abscess She will likely benefit from eventual resection Her daughter in-law was in the room during the discussion Time Spent With Patient Time: Total time managing care of this patient today ____ minutes.
[2025-03-31 12:00] VITALS: BP 148/69; PULSE 81; RESP 15; TEMP 36.7; O2SAT 95
--- NOTE | 2025-03-31 14:07 | MHC.CM.PN ---
EMR REVIEWED AND PT IS NOT MEDICALLY CLEARED FOR DC (IR WILL PLACE DRAIN FOR ABSCESS) CM WILL CONTINUE TO FOLLOW FOR ANY CHANGE TO PLAN.
[2025-03-31 14:50] LABS: INTERNATIONAL NORM RATIO 1.2 (0.9-1.1); Prothrombin Time 13.5 SEC (10.9-12.4)
[2025-03-31 16:00] VITALS: BP 145/67; PULSE 85; RESP 20; TEMP 36.7; O2SAT 95
--- NOTE | 2025-03-31 16:48 | PM.EVENT ---
Event Note Date of Service: 03/31/25 Event Note: Informed by IR that CT drain could not be done today IR drain we will be done at 10:30 tomorrow morning Family upset about this I explained to them that there were so many cases scheduled for today in IR Patient remains afebrile Abdomen is soft and benign WBC was normal this morning Okay to have clear liquids for now NPO post midnight Replace potassium Repeat BNP in the morning Time Spent With Patient Time: Total time managing care of this patient today ____ minutes.
[2025-03-31] MEDS: KCl 20 mEq in 5 % Dex/Lact Rin 20 MEQ/1,000 ML IV.SOLN 100 MEQ IVCONT (16:54)
[2025-03-31] MEDS: Potassium Chloride ER 20 MEQ TAB.ER.PRT 40 MEQ PO ×2 (16:55→19:19)
--- NOTE | 2025-03-31 17:44 | PC.NURSE ---
1430 -This RN notified by IR staff that pt drainage to be done today at 1530. Pt and family made aware. 1500- This RN notified by IR that pt case will be moved to tomorrow as previous case delayed. 1505- This RN requested Dr Lees to come speak with family in regards to cancellation of drain for today. Pt along with family are extremely concerned, frustrated and upset as to the delay in care of the patient. 1530- This RN notified by IR that pt case will be at 1030 tomorrow am, Dr Lees notified as well. 1545- Pt and family aware that Dr Lees will be up to speak with them but requesting to speak with a home health care case manager. 1615- Jessica in to speak with pt and family who are now requesting tot speak to director community center. 1630- Dr Lees and director community center Janet Marie in to speak with pt and family. Pt and family seem to be a bit more at ease with drain plan for the morning but are still voicing frustration. 1730- Pt resting comfortably in bed, denies pain or nausea at this time
[2025-03-31 19:48] VITALS: BP 175/74; PULSE 83; RESP 18; TEMP 36.5; O2SAT 94
[2025-03-31 23:38] VITALS: BP 145/69; PULSE 90; RESP 18; TEMP 36.2; O2SAT 92
[2025-04-01] VITALS (12 sets, daily range): BP systolic 125–160; BP diastolic 60–81; PULSE 83–96; RESP 18–24; TEMP 36.3–37; O2SAT 95–99
[2025-04-01] MEDS: KCl 20 mEq in 5 % Dex/Lact Rin 20 MEQ/1,000 ML IV.SOLN 100 MEQ IVCONT ×3 (01:52→23:26)
--- NOTE | 2025-04-01 08:11 | P.PNGS_ITS ---
Subjective Subjective Date of Service: 04/01/25 <Desean Landry PA-C - Last Filed: 04/01/25 11:28> 04/01/25 <Kishan Lees MD - Last Filed: 04/01/25 09:58> Interval history: Doing okay. Continues to have large amounts of diarrhea., some mild abdominal pain and nausea as well. She is frustrated because she was supposed to have an IR drain yesterday however due to schedule unable to do so <Desean Landry PA-C - Last Filed: 04/01/25 11:28> Physical Exam 2 Vital Signs: Vital Signs: Last Vital Signs Temp 98.3 F 04/01/25 08:00 Pulse 83 04/01/25 08:00 Resp 18 04/01/25 08:00 BP 141/72 H 04/01/25 08:00 Pulse Ox 95 04/01/25 08:00 O2 Del Method Room Air 04/01/25 08:00 O2 Flow Rate 95 03/26/25 00:00 BMI result Body Mass Index 27.1 <Desean Landry PA-C - Last Filed: 04/01/25 11:28> Const: General: comfortable and no acute distress <Desean Landry PA-C - Last Filed: 04/01/25 11:28> Orientation/consciousness: patient oriented x3 <JORGE Huggins Last Filed: 04/01/25 11:28> Resp: Effort & Inspection: normal respiratory effort and able to speak in complete sentences <Desean Landry PA-C - Last Filed: 04/01/25 11:28> GI: Inspection: No distended <JORGE Huggins Last Filed: 04/01/25 11:28> Palpation (GI): Soft to palpation, Tenderness to palpation present (GI) (Mild tenderness lower abdomen) and no guarding <JORGE Huggins Last Filed: 04/01/25 11:28> Neuro: General: patient oriented x3 <JORGE Huggins Last Filed: 04/01/25 11:28> Objective Data Active Medications Acetaminophen (Acetaminophen 325 Mg Tablet) 650 mg PO Q6H PRN PRN Reason: Pain, Mild 1-3,fever,headache Last Admin: 03/28/25 11:42 Dose: 650 mg Amlodipine Besylate (Amlodipine Besylate 5 Mg Tablet) 5 mg PO DAILY [facility]; Protocol Last Admin: 03/31/25 08:29 Dose: 5 mg Documented By: HANK Calcium Carbonate (Calcium Carbonate 750 Mg Tab.Chew) 750 mg PO Q4H PRN PRN Reason: Heartburn Heparin Sodium (Porcine) (Heparin Sodium,Porcine 5,000 Unit/Ml Vial) 5,000 unit SUBCUT Q8H [facility] Last Admin: 04/01/25 05:54 Dose: Not Given Documented By: REJI Non-Admin Reason: Patient Refused Piperacillin Sod/Tazobactam (Sod 3.375 gm/ Sodium Chloride) 50 mls @ 100 mls/hr IV Q6H [facility] Last Infusion: 04/01/25 05:22 Dose: Infused Documented By: REJI Potassium Cl/Dextrose/Lact Ringer's (Kcl 20 Meq In 5 % Dex/Lact Rin) 20 meq in 1,000 mls @ 100 mls/hr IVCONT .Q10H [facility] Last Infusion: 04/01/25 04:43 Dose: 0 mls/hr Documented By: REJI Ketorolac Tromethamine (Ketorolac Tromethamine 30 Mg/Ml Vial) 30 mg IVPUSH Q6H PRN PRN Reason: Pain, Moderate(Pain Scale 4-6) Stop: 04/02/25 19:47 Last Admin: 03/31/25 19:55 Dose: 30 mg Documented By: REJI Melatonin (Melatonin 3 Mg Tablet) 6 mg PO BEDTIME PRN PRN Reason: Insomnia Metoclopramide HCl (Metoclopramide Hcl 10 Mg/2 Ml Vial) 10 mg IVPUSH Q6H [facility] Stop: 04/01/25 14:59 Last Admin: 04/01/25 02:52 Dose: 10 mg Documented By: REJI Omeprazole (Omeprazole 20 Mg Capsule.Dr) 20 mg PO DAILY [facility] Last Admin: 03/31/25 08:29 Dose: 20 mg Documented By: HANK Ondansetron HCl (Ondansetron Hcl 4 Mg/2 Ml Vial) 4 mg IVPUSH Q6H PRN PRN Reason: nausea Last Admin: 03/30/25 04:56 Dose: 4 mg Documented By: ZENA Sodium Chloride (0.9 % Sodium Chloride Flush 3 Ml Syringe) 3 ml IVFLUSH QSHIFT [facility] Last Admin: 03/31/25 22:54 Dose: Not Given Documented By: REJI Non-Admin Reason: IV Running <Desean Landry PA-C - Last Filed: 04/01/25 11:28> Labs CBC & Chem 7: 04/01/25 09:26 04/01/25 09:26 <Desean Landry PA-C - Last Filed: 04/01/25 11:28> Labs: Laboratory Results - last 24 hr 03/31/25 14:14 PT 13.5 H INR 1.2 H <Desean Landry PA-C - Last Filed: 04/01/25 11:28> Procedures Date of Service Date of Service: 04/01/25 <Desean Landry PA-C - Last Filed: 04/01/25 11:28> 04/01/25 <Kishan Lees MD - Last Filed: 04/01/25 09:58> Progress Note: A&P Assessment and plan (1) Diverticulitis: Status: Acute <Desean Landry PA-C - Last Filed: 04/01/25 11:28> Assessment and Plan: Main complaint his diarrhea Minimal abdominal pain No fever Abdomen is soft and very benign Looks well overall For CT drainage today Follow up potassium Repeat C diff test Seen and examined independently <Kishan Lees MD - Last Filed: 04/01/25 09:58> Assessment and Plan: 69 year old female with diverticulitis with microperforation, phelgmon on previous CT scan. Continues to feel as though she is not improving. Experiencing diarrhea, nausea, mild lower abdominal pain. She has tolerated CLD, without increase in symptoms. Has also had bland solids, tolerating. NPO for procedure today. C Diff negative x2. We will recheck today as well as GI panel. repeat CT scan yesterday showing abscess collection in the pelvis, scheduled for IR drain. Hypokalemic yesterday, orally repleated, a.m. labs show improved leukocytosis potassium now within normal limits. On exam the abdomen is soft, very mildly tender in the lower abdomen. She looks well. Can advance diet after procedure labs pending IR drain of pelvic abscess this morning continue IV fluids, now replacing with potassium Repeat C diff/GI panel due to diarrhea <Desean Landry PA-C - Last Filed: 04/01/25 11:28> Time Spent With Patient Time: Total time managing care of this patient today ____ minutes. <Desean Landry PA-C - Last Filed: 04/01/25 11:28> Quality Stroke Does the patient have a stroke diagnosis?: No <Desean Landry PA-C - Last Filed: 04/01/25 11:28> VTE Prior VTE?: No <Desean Landry PA-C - Last Filed: 04/01/25 11:28> VTE Risk Level:: Medical - moderate - high <Desean Landry PA-C - Last Filed: 04/01/25 11:28> VTE Device Contraindication: N/A - Device Ordered <Desean Landry PA-C - Last Filed: 04/01/25 11:28> VTE Drug Contraindication: N/A - Med Ordered <Desean Landry PA-C - Last Filed: 04/01/25 11:28>
[2025-04-01 10:07] LABS: Hematocrit 30.9 % (37.0-47.0); Hemoglobin 10.6 g/dl (12.0-16.0); Mean Corpuscular HGB Conc 34.3 g/dl (31.0-35.0); Mean Corpuscular Hemoglobin 31.5 pg (27.0-33.0); Mean Corpuscular Volume 92.0 fL (80.0-98.0); NRBC Abs Auto 0.000 X10*3/uL (0.0-0.012); NRBC Pct Auto 0.0 /100WBC (0.0-0.2); Platelet Count 425 X10*3/uL (160-400); Red Blood Count 3.36 X10*6/uL (4.20-5.50); White Blood Count 8.9 X10*3/uL (4.8-10.8)
[2025-04-01 10:27] LABS: Blood Urea Nitrogen < 3 mg/dL (9-16); Calcium 8.5 mg/dL (8.4-10.2); Creatinine Clr Calc Pharmacy 111.2; Estimated Glomerular Filt Rate > 60
[2025-04-01 10:36] LABS: Anion Gap 12 (12-20); Carbon Dioxide 26 mmol/L (22-29); Chloride 110 mmol/L (96-108); Potassium 3.7 mmol/L (3.3-5.1); Sodium 144 mmol/L (135-145)
--- NOTE | 2025-04-01 11:54 | HO.RADPN ---
RADIOLOGY Narrative Narrative: 10 fr pelvic drain placed. slightly cloudy yellow fluid 50mL aspirated. specimen sen for gs and culture and cytology.
--- NOTE | 2025-04-01 14:54 | PM.EVENT ---
Event Note Date of Service: 04/01/25 Event Note: Seen on afternoon rounds IR drain placed Yellowish fluid in collection bag She looks well Abdomen is soft and benign Diarrhea better Okay to start on some food tonight Continue antibiotics Family updated Stool studies pending Time Spent With Patient Time: Total time managing care of this patient today ____ minutes.
[2025-04-02 04:00] VITALS: BP 130/62; PULSE 86; RESP 18; TEMP 37; O2SAT 96
[2025-04-02 06:31] LABS: Anion Gap 12 (12-20); Blood Urea Nitrogen < 3 mg/dL (9-16); Calcium 8.5 mg/dL (8.4-10.2); Carbon Dioxide 26 mmol/L (22-29); Chloride 109 mmol/L (96-108); Creatinine Clr Calc Pharmacy 103.4; Estimated Glomerular Filt Rate > 60; Potassium 3.6 mmol/L (3.3-5.1); Sodium 143 mmol/L (135-145)
[2025-04-02 07:48] VITALS: BP 157/69; PULSE 77; RESP 18; TEMP 36.9; O2SAT 95
--- NOTE | 2025-04-02 07:52 | PM.PNGS ---
Subjective Subjective Date of Service: 04/02/25 <Desean Landry PA-C - Last Filed: 04/02/25 08:07> 04/02/25 <Kishan Lees MD - Last Filed: 04/02/25 08:07> Interval history: feels a bit better today. pain improved. denies nausea or vomiting. Tolerating regular diet. Continues to have diarrhea but thinks it has gotten less frequent. <Desean Landry PA-C - Last Filed: 04/02/25 08:07> Physical Exam Vital Signs: Vital Signs: Last Vital Signs Temp 98.4 F 04/02/25 07:48 Pulse 77 04/02/25 07:48 Resp 18 04/02/25 07:48 BP 157/69 H 04/02/25 07:48 Pulse Ox 95 04/02/25 07:48 O2 Del Method Room Air 04/02/25 07:48 O2 Flow Rate 2 04/01/25 11:35 BMI result Body Mass Index 27.1 <Desean Landry PA-C - Last Filed: 04/02/25 08:07> Const: General: comfortable and no acute distress <Desean Landry PA-C - Last Filed: 04/02/25 08:07> Orientation/consciousness: patient oriented x3 <JORGE Huggins Last Filed: 04/02/25 08:07> GI: Other: drain in place, output 60 cc overnight. clear yellow drainage, no purulence <Desean Landry PA-C - Last Filed: 04/02/25 08:07> Inspection: No distended <JORGE Huggins Last Filed: 04/02/25 08:07> Palpation (GI): Soft to palpation, nontender and no guarding <Desean Landry PA-C - Last Filed: 04/02/25 08:07> Neuro: General: patient oriented x3 <JORGE Huggins Last Filed: 04/02/25 08:07> Objective Data Active Medications Acetaminophen (Acetaminophen 325 Mg Tablet) 650 mg PO Q6H PRN PRN Reason: Pain, Mild 1-3,fever,headache Last Admin: 03/28/25 11:42 Dose: 650 mg Amlodipine Besylate (Amlodipine Besylate 5 Mg Tablet) 5 mg PO DAILY [facility]; Protocol Last Admin: 04/01/25 08:14 Dose: Not Given Documented By: BRANDON Non-Admin Reason: NPO Calcium Carbonate (Calcium Carbonate 750 Mg Tab.Chew) 750 mg PO Q4H PRN PRN Reason: Heartburn Heparin Sodium (Porcine) (Heparin Sodium,Porcine 5,000 Unit/Ml Vial) 5,000 unit SUBCUT Q8H [facility] Last Admin: 04/02/25 05:37 Dose: Not Given Documented By: REJI Non-Admin Reason: Patient Refused Piperacillin Sod/Tazobactam (Sod 3.375 gm/ Sodium Chloride) 50 mls @ 100 mls/hr IV Q6H [facility] Last Infusion: 04/02/25 06:02 Dose: Infused Documented By: REJI Potassium Cl/Dextrose/Lact Ringer's (Kcl 20 Meq In 5 % Dex/Lact Rin) 20 meq in 1,000 mls @ 100 mls/hr IVCONT .Q10H [facility] Last Admin: 04/01/25 23:26 Dose: 100 mls/hr Documented By: REJI Ketorolac Tromethamine (Ketorolac Tromethamine 30 Mg/Ml Vial) 30 mg IVPUSH Q6H PRN PRN Reason: Pain, Moderate(Pain Scale 4-6) Stop: 04/02/25 19:47 Last Admin: 03/31/25 19:55 Dose: 30 mg Documented By: REJI Melatonin (Melatonin 3 Mg Tablet) 6 mg PO BEDTIME PRN PRN Reason: Insomnia Omeprazole (Omeprazole 20 Mg Capsule.Dr) 20 mg PO DAILY [facility] Last Admin: 04/01/25 08:14 Dose: Not Given Documented By: BRANDON Non-Admin Reason: NPO Ondansetron HCl (Ondansetron Hcl 4 Mg/2 Ml Vial) 4 mg IVPUSH Q6H PRN PRN Reason: nausea Last Admin: 03/30/25 04:56 Dose: 4 mg Documented By: ZENA Sodium Chloride (0.9 % Sodium Chloride Flush 3 Ml Syringe) 3 ml IVFLUSH QSHIFT [facility] Last Admin: 04/01/25 23:32 Dose: Not Given Documented By: REJI Non-Admin Reason: IV Running <Desean Landry PA-C - Last Filed: 04/02/25 08:07> Labs CBC & Chem 7: 04/01/25 09:26 04/02/25 05:59 <Desean Landry PA-C - Last Filed: 04/02/25 08:07> Labs: Laboratory Results - last 24 hr 04/01/25 04/01/25 04/02/25 09:26 Unknown 05:59 MCV 92.0 MCH 31.5 MCHC 34.3 RDW 12.9 Plt Count 425 H MPV 10.0 Absolute Nucleated RBC 0.000 Nucleated RBC % (auto) 0.0 Anion Gap 12 12 Estim Creat Clear Calc 111.2 103.4 Estimated GFR > 60 > 60 Random Glucose 126 H 110 Calcium 8.5 8.5 C. difficile Tox B Gene Cancelled <Desean Landry PA-C - Last Filed: 04/02/25 08:07> Microbiology Microbiology Results: Microbiology 04/01/25 11:30 Gram Stain - Final Abdominal Fluid <Desean Landry PA-C - Last Filed: 04/02/25 08:07> Procedures Date of Service Date of Service: 04/02/25 <Desean Landry PA-C - Last Filed: 04/02/25 08:07> 04/02/25 <Kishan Lees MD - Last Filed: 04/02/25 08:07> Progress Note: A&P Assessment and plan (1) Diverticulitis: Status: Acute <Desean Landry PA-C - Last Filed: 04/02/25 08:07> Assessment and Plan: Feels much better this morning Denies significant pain Diarrhea has improved Abdomen is soft and benign Drain in place - serous, non purulent looking Abdomen is soft and benign She looks well Follow up on cultures Possible DC home tomorrow Seen and examined independently <Kishan Lees MD - Last Filed: 04/02/25 08:07> Assessment and Plan: 69 year old female with diverticulitis with microperforation, phelgmon on previous CT scan. Feels better today. still having diarrhea, somewhat improved per pt. Pain improving. Denies nausea, vomiting. tolerating regular diet. She had IR drain placed yesterday, tolerated well, output has been clear yellow fluid, no purulence. 60 cc overnight. Potassium remains within normal limits. CBC shows improved leukocytosis. On exam the abdomen is soft, nontender. She looks well. Were unable to obtain stool samples to to urine contamination or unable to make it to the bathroom in time to collect. Diarrhea slowing down, can likely hold off on repeat cdiff and GI panel at this point. Drain fluid culture pending. IR drain maintenance Diet as tolerated ambulation as tolerated continue abx while inpatient. if continuing to do well tomorrow can likely discharge <Desean Landry PA-C - Last Filed: 04/02/25 08:07> Time Spent With Patient Time: Total time managing care of this patient today ____ minutes. <Desean Landry PA-C - Last Filed: 04/02/25 08:07> Quality Stroke Does the patient have a stroke diagnosis?: No <Desean Landry PA-C - Last Filed: 04/02/25 08:07> VTE Prior VTE?: No <Desean Landry PA-C - Last Filed: 04/02/25 08:07> VTE Risk Level:: Medical - moderate - high <JORGE Huggins Last Filed: 04/02/25 08:07> VTE Device Contraindication: N/A - Device Ordered <JORGE Huggins Last Filed: 04/02/25 08:07> VTE Drug Contraindication: N/A - Med Ordered <JORGE Huggins Last Filed: 04/02/25 08:07>
[2025-04-02] MEDS: KCl 20 mEq in 5 % Dex/Lact Rin 20 MEQ/1,000 ML IV.SOLN 100 MEQ IVCONT (08:18)
--- NOTE | 2025-04-02 11:16 | MHC.CM.PN ---
Per surgeon a drain was placed in the OR for abdominal abscess, 04/01/25. The patient will discharge with the drain. A referral has been sent to [facility] for drain management. Per surgery documentation discharge tomorrow or later today. RN providing education and training on drain care management.
[2025-04-02 15:59] VITALS: BP 158/69; PULSE 81; RESP 20; TEMP 36.6; O2SAT 97
[2025-04-02] MEDS: 0.9 % Sodium Chloride Flush 3 ML SYRINGE IVFLUSH ×2 (17:19→23:40)
[2025-04-02 20:00] VITALS: BP 149/70; PULSE 78; RESP 19; TEMP 36.7; O2SAT 96
[2025-04-03 04:00] VITALS: BP 163/78; PULSE 76; RESP 17; TEMP 36.1; O2SAT 96
[2025-04-03 07:45] VITALS: BP 144/77; PULSE 80; RESP 18; TEMP 37.4; O2SAT 97
--- NOTE | 2025-04-03 07:54 | P.PNGS_ITS ---
Subjective Subjective Date of Service: 04/03/25 Interval history: Feels well Tolerating diet Has BMs Denies abdominal pain CALLUM drain scanty Physical Exam 2 Vital Signs: Vital Signs: Last Vital Signs Temp 99.4 F 04/03/25 07:45 Pulse 80 04/03/25 07:45 Resp 18 04/03/25 07:45 BP 144/77 H 04/03/25 07:45 Pulse Ox 97 04/03/25 07:45 O2 Del Method Room Air 04/03/25 07:45 O2 Flow Rate 2 04/01/25 11:35 BMI result Body Mass Index 27.1 Const: General: comfortable and no acute distress Resp: Effort & Inspection: normal respiratory effort Cardio: Rate: regular rate GI: Other: CALLUM drain scanty, thin serous Palpation (GI): Soft to palpation, not firm, nontender and no guarding Objective Data Active Medications Acetaminophen (Acetaminophen 325 Mg Tablet) 650 mg PO Q6H PRN PRN Reason: Pain, Mild 1-3,fever,headache Last Admin: 03/28/25 11:42 Dose: 650 mg Amlodipine Besylate (Amlodipine Besylate 5 Mg Tablet) 5 mg PO DAILY [facility]; Protocol Last Admin: 04/02/25 08:09 Dose: 5 mg Documented By: BRANDON Calcium Carbonate (Calcium Carbonate 750 Mg Tab.Chew) 750 mg PO Q4H PRN PRN Reason: Heartburn Heparin Sodium (Porcine) (Heparin Sodium,Porcine 5,000 Unit/Ml Vial) 5,000 unit SUBCUT Q8H [facility] Last Admin: 04/03/25 05:56 Dose: Not Given Documented By: JOANA Non-Admin Reason: Patient Refused Piperacillin Sod/Tazobactam (Sod 3.375 gm/ Sodium Chloride) 50 mls @ 100 mls/hr IV Q6H [facility] Last Infusion: 04/03/25 06:30 Dose: Infused Documented By: JOANA Melatonin (Melatonin 3 Mg Tablet) 6 mg PO BEDTIME PRN PRN Reason: Insomnia Omeprazole (Omeprazole 20 Mg Capsule.Dr) 20 mg PO DAILY [facility] Last Admin: 04/02/25 08:09 Dose: 20 mg Documented By: BRANDON Ondansetron HCl (Ondansetron Hcl 4 Mg/2 Ml Vial) 4 mg IVPUSH Q6H PRN PRN Reason: nausea Last Admin: 03/30/25 04:56 Dose: 4 mg Documented By: ZENA Sodium Chloride (0.9 % Sodium Chloride Flush 3 Ml Syringe) [facility] Last Admin: 04/02/25 23:40 Dose: 3 ml Documented By: JOANA Labs 04/01/25 09:26 04/02/25 05:59 Microbiology Microbiology Results: Microbiology 04/01/25 11:30 Gram Stain - Final Abdominal Fluid Routine Culture - Final No growth after 2 days Anaerobic Culture - Preliminary No growth to date. Procedures Date of Service Date of Service: 04/03/25 Progress Note: A&P Assessment and plan (1) Diverticulitis: Status: Acute Assessment and Plan: Doing very well after CT drain Cultures do not show any growth Good GI functions Abdomen is soft and benign She looks well No fever She says she is ready to be discharged We will DC home with CT drain I explained care for drain Will continue on follow on oral antibiotics I will see her in the office next week Discussed with daughter in-law as well Time Spent With Patient Time: Total time managing care of this patient today ____ minutes. Quality Stroke Does the patient have a stroke diagnosis?: No VTE Prior VTE?: No VTE Risk Level:: Medical - moderate - high VTE Device Contraindication: N/A - Device Ordered VTE Drug Contraindication: N/A - Med Ordered
[2025-04-03] MEDS: 0.9 % Sodium Chloride Flush 3 ML SYRINGE IVFLUSH (08:37)
--- NOTE | 2025-04-03 08:41 | MHC.CM.PN ---
Addendum entered by Homa Botello 04/03/25 08:48: FINAL IMM DELIVERED. Original Note: DP: PT HAS BEEN MEDICALLY CLEARED FOR DC HOME, NO SERVICES. [facility] WILL TRANSPORT HOME.
--- NOTE | 2025-04-03 10:51 | PC.NURSE ---
Pt for discharge to home . pt instructed on care of her drain and to keep a daily log of output . pt receptive to teaching and able to report back
--- NOTE | 2025-04-03 13:37 | PM.DS ---
DS: Providers Provider Date of Service: 04/03/25 Date of admission: 03/24/25 17:31 Date of discharge: 04/03/25 Primary care physician: Tea Shoemaker NP Admitting clinician: Kishan Lees Attending physician on admission: Kishan Lees Attending physician on discharge: Kishan Lees DS: Diagnosis Discharge Diagnosis (1) Diverticulitis: Status: Acute DS: Summary Hospital Course Hospital Course: Admission HPI: Domi Ghosh is a 69 year old female known for about her arthritis, GERD, hypertension, here in the ER because of lower abdominal pain for the past 3 days. She says that she thought that this was food poisoning. She says that this has not getting worse at all but just seems to have been persistent. She decided to be checked in the ER today therefore. She denies any vomiting. She denies any diarrhea. She does state that she has had some constipation She has had no fever or chills.She says her pain is [id number].She says that she had a colonoscopy in 2021 and she remembers this to be unremarkable. Hospital Course: Patient was admitted for conservative management of diverticulitis with bowel rest, antibiotics. Intially on the first two days of admission patient was improving, improved pain, diet was slowly advanced to clears and eventually regular diet. However on day 3 of admission she began to develop increased abdominal pain, nausea, and high volume multiple episodes of diarrhea. Repeat CT was ordered showing phlegmon microperforations no abscess formation. Diet was reduced NPO. C diff negative. Diet was again advanced to clear liquids as there was no abscess needing to be drained, continued with IV abx. This continued over the next few days without changes. Continued to have multiple episodes of diarrhea with mild lower abdominal pain. Diet was advanced to full which she was able to tolerate. On 03/[address] was ordered showing fluid collection now, patient was made NPO, had IR drain placed which removed yellow cloud fluid. White count was normal. continuing to have diarrhea but now improving overall. Repeat cdiff negative, now negative x2. Continued to tolerate diet. After drain patient feelign less pain, minimal nausea. Drain putting out small volumes of clear yellow fluid. Patient not having issues with urination. On 04/03 patient felt improved, much less frequent diarrhea. He abdomen was soft and benign. The drain remains in place, scant serous output. Patient was discharged home with drain, will follow up in the office next week for follow up and removal. At the time of discharge she was in stable condition. Status at Discharge Functional status at discharge: independent ambulation Overall status at discharge: patient is progressing back to baseline Time Attestation Discharge Coordination Time (in mins): 30 Quality: Safe Use of Opioids Does Pt have an Active Cancer Diagnosis on the Problem List?: No Quality: Stroke Does the patient have a stroke diagnosis?: No Physical Exam Vital Signs: Vital Signs: Last Vital Signs Temp 99.4 F 04/03/25 07:45 Pulse 80 04/03/25 07:45 Resp 18 04/03/25 07:45 BP 144/77 H 04/03/25 07:45 Pulse Ox 97 04/03/25 07:45 O2 Del Method Room Air 04/03/25 07:45 O2 Flow Rate 2 04/01/25 11:35 BMI result Body Mass Index 27.1 Const: General: comfortable and no acute distress Resp: Effort & Inspection: normal respiratory effort Cardio: Rate: regular rate GI: Other: CALLUM drain scanty, thin serous Palpation (GI): Soft to palpation, not firm, nontender and no guarding DS: Data Data Completed and Pending Pending studies at discharge: Pending at discharge 04/01/25 11:51 Cytology [PTH] Routine Labs on day of discharge: Preliminary micro results at discharge 04/01/25 11:30 Anaerobic Culture - Preliminary Abdominal Fluid No growth to date. 03/24/25 17:34 Blood Culture - Preliminary Blood - Venous Anaerobic gram negative rods Discharge Plan Discharge Anticipated Discharge Date/Time: 04/03/25 07:56 Patient Disposition: Home, Self-Care Discharge Diagnosis: Diverticulitis with microperforation, fluid collection Referrals: Tea Shoemaker NP [Primary Care Provider, Internal Medicine] - 1 Week Kishan Lees MD [Physician, General Surgery] - 1 Week Discharge Medications: New amoxicillin-pot clavulanate 875-125 mg tablet 1 tab PO BID Qty: 8 0RF Continued alendronate 70 mg tablet 70 mg PO MO methotrexate sodium 2.5 mg tablet 20 mg PO MO amlodipine-benazepril 5-10 mg capsule 1 cap PO DAILY esomeprazole magnesium 40 mg capsule,delayed release(DR/EC) 40 mg PO DAILY@0630 folic acid 1 mg tablet 1 mg PO DAILY infliximab [Remicade] 100 mg Recon Soln 100 mg IV [id number] Discharge Orders: Discharge Order (Routine); Ordered 04/03/25 Ordered By: Kishan Lees Diet: Advance to usual diet Activity on Discharge: No heavy lifting Stand Alone Forms: Patient Portal Discharge page Print Language: [place]se Activity Restrictions/Additional Instructions: Please reach out to the office or be seen at the emergency department if you develop: -Fever >101.5 -Increasing pain or swelling of the area -You develop nausea or vomiting you can empty the drain twice each day, measure and keep a log of the amount you empty each day you can shower with the drain in place You can additionally use OTC ibuprofen or acetaminophen as needed for pain. You will follow up with Dr. Lees in the office in 1 week, you can call the office to schedule the appointment ) Care Plan Goals: follow up in the office next week for drain removal Health Concerns: diverticulitis Plan of Treatment: follow up in the office Assessment: patient doing well Patient Instructions: Diverticulitis (GEN), Perforated Bowel (GEN) Discharge Date/Time: 04/03/25 12:15
== END 2025-04-03 12:15 | disposition home or self-care (01) | DRG 392 ==
LOC: HO.ED 17:24 → HO.EDOVER 17:37 → HO.S3 19:15
PROVIDERS: Physician Assistant Medical; Radiology Diagnostic Radiology; Surgery; Admitting Provider Surgery; Emergency Provider Emergency Medicine; PCP Nurse Practitioner Adult Health; Visit Provider Surgery
PROC: 0W9H30Z Drainage of Retroperitoneum with Drainage Device, Percutaneous Approach (ICD-10-PCS; principal; 2025-04-01 10:30)
DX: K57.20 Diverticulitis of large intestine with perforation and abscess without bleeding (principal); M06.9 Rheumatoid arthritis, unspecified; Z79.631 Long term (current) use of antimetabolite agent; Z79.620 Long term (current) use of immunosuppressive biologic; Z79.899 Other long term (current) drug therapy
CPT/HCPCS: 36415; 49406; 74177; 80048; 80053; 81001; 83605; 83690; 83735; 85025; 85027; 85610; 87040; 87070; 87073; 87076; 87086; 87185; 87205; 87493; 88112; 88305; 99152; 99153; 99285; C1729; C1894; J0131; J1644; J1885; J2250; J2270; J2405; J2543; J2765; J3010; J3480; J7120; Q9967

== ENCOUNTER → 2025-03-24 15:42 | Outpatient (BNV) | payer BC, SELFPAY | PROVIDERS: Admitting Provider Surgery; Emergency Provider Emergency Medicine; PCP Nurse Practitioner Adult Health; Visit Provider Radiology Diagnostic Radiology | DX: R10.30 Lower abdominal pain, unspecified (principal) | CPT/HCPCS: 74177 ==

== ENCOUNTER 2025-03-24 17:31 | Outpatient (BNV) | payer MEDICARE, BC, SELFPAY | END 2025-03-31 07:52 | PROVIDERS: Admitting Provider Surgery; Emergency Provider Emergency Medicine; PCP Nurse Practitioner Adult Health; Visit Provider Radiology Diagnostic Radiology | DX: K57.33 Diverticulitis of large intestine without perforation or abscess with bleeding (principal) | CPT/HCPCS: 74177 ==

== ENCOUNTER 2025-03-24 17:31 | Outpatient (BNV) | payer MEDICARE, BC, SELFPAY | END 2025-03-26 09:37 | PROVIDERS: Admitting Provider Surgery; Emergency Provider Emergency Medicine; PCP Nurse Practitioner Adult Health; Visit Provider Radiology Diagnostic Radiology | DX: K57.20 Diverticulitis of large intestine with perforation and abscess without bleeding (principal) | CPT/HCPCS: 74177 ==

== ENCOUNTER 2025-03-24 17:31 | Outpatient (BNV) | payer MEDICARE, BC, SELFPAY | END 2025-04-01 11:03 | PROVIDERS: Admitting Provider Surgery; Emergency Provider Emergency Medicine; PCP Nurse Practitioner Adult Health; Visit Provider Radiology Diagnostic Radiology | DX: K57.20 Diverticulitis of large intestine with perforation and abscess without bleeding (principal) | CPT/HCPCS: 49406; 99152 ==

== ENCOUNTER → 2025-03-24 17:31 | Outpatient (BNV) | payer MEDICARE, BC, SELFPAY | PROVIDERS: Admitting Provider Surgery; Emergency Provider Emergency Medicine; PCP Nurse Practitioner Adult Health | DX: K57.92 Diverticulitis of intestine, part unspecified, without perforation or abscess without bleeding (principal) | CPT/HCPCS: 99232; 99499 ==

== ENCOUNTER 2025-04-10 14:13 | Outpatient (AMB) | payer MEDICARE, BC, SELFPAY ==
--- NOTE | 2025-04-10 14:19 | A.OFFVIS_ITS ---
Vital Signs 04/10/25 14:27 Height 5 ft 7 in Weight 162 lb 2 oz BMI 25.4 Intake Visit Reasons: s/p diverticulitis/Abdominal drain insertion Intake Note: This patient presents for follow-up assessment status post diverticulitis/ abdominal drain insertion. (04/01/2025) Pt c/o; drain fell out 04/09/2025, no other complaints. 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 She was admitted last 03/24/2025 for diverticulitis at the rectosigmoid with a microperforation. She was on IV antibiotics. She did have significant diarrhea during the treatment. A follow up CAT scan on March 31 and this showed an abscess. She eventually underwent IR drainage of the abscess on April 01. She was discharged on April 03. She says the drain came out yesterday but she says that there has been scanty output. She feels well overall. She denies any fever or chills. She denies abdominal pain. [facility] Medical History HLD (hyperlipidemia) Rheumatoid arthritis HTN (hypertension) Social History Household Members: Spouse Housing: House Patient Tobacco Use Status: Never used Tobacco Advance Directives Date on File: 03/24/25 service: No Review of Systems Const Denies chills and Denies fever(s) Card Denies chest pain GI Denies abdominal pain Denies difficulty voiding Physical Exam Const General: comfortable and no acute distress Resp Effort & Inspection: normal respiratory effort Cardio Rate: regular rate GI Palpation (GI): Soft to palpation, not firm, nontender and no guarding Assessment & Plan Assessment & Plan (1) Diverticulitis: Code(s): K57.92 - Diverticulitis of intestine, part unspecified, without perforation or abscess without bleeding Category: Medical Plan: She had a diverticular abscess and an IR drain had been placed. This drain came off yesterday but she has had very little output from this already Her abdomen is very soft and benign. She denies any fever or chills. She denies any abdominal pain I will see her again in the office in about 1 month to see how she is doing. She looks well overall. Coding Level of Care Code Est Pt Level 3 (75387) Diagnoses Diverticulitis K57.92
[2025-04-10 14:27] VITALS: BMI 25.4
== END 2025-04-10 14:47 | disposition home or self-care (01) ==
LOC: HO.HGS 14:14
PROVIDERS: PCP Nurse Practitioner Adult Health; Visit Provider Surgery
DX: K57.92 Diverticulitis of intestine, part unspecified, without perforation or abscess without bleeding (principal)
CPT/HCPCS: 99213

== ENCOUNTER → 2025-04-10 14:13 | Outpatient (BNVA) | payer MEDICARE, BC, SELFPAY | PROVIDERS: PCP Nurse Practitioner Adult Health; Visit Provider Surgery | DX: K57.92 Diverticulitis of intestine, part unspecified, without perforation or abscess without bleeding (principal) | CPT/HCPCS: 99212 ==

== ENCOUNTER 2025-05-21 09:26 | Outpatient (AMB) | payer MEDICARE, BC, SELFPAY ==
[2025-05-21 09:28] VITALS: BMI 25.3
--- NOTE | 2025-05-21 09:28 | A.OFFVIS_ITS ---
Vital Signs 05/21/25 09:28 Height 5 ft 7 in Weight 161 lb 6 oz BMI 25.3 Intake Visit Reasons: 1mth follow up diverticulitis Intake Note: This patient presents for one month follow-up for diverticulitis. Pt c/o; reports no complaints at this time. Lan Manager Required: No Accompanied by: Self / Same As Patient Allergies No Known Allergies Allergy (Verified 05/21/25 09:34) Medication List - Last Reconciled 05/21/25 by Kishan Lees MD alendronate 70 mg PO MO amlodipine-benazepril 5-10 mg 1 cap PO DAILY esomeprazole magnesium 40 mg PO DAILY@0630 folic acid 1 mg PO DAILY infliximab (Remicade) 100 mg IV [id number] methotrexate sodium 20 mg PO MO HPI HPI 1mth follow up diverticulitis: Details: She is here for follow-up after an episode diverticulitis requiring IR drainage in March, She has had no problems since that time. She has had no recurrence of abdominal pain. She has good oral intake and good bowel movements. She says she feels well overall. [facility] Medical History HLD (hyperlipidemia) Rheumatoid arthritis HTN (hypertension) Surgical History No pertinent past surgical history Social History Household Members: Spouse Housing: House Patient Tobacco Use Status: Never used Tobacco Advance Directives Date on File: 03/24/25 service: No Review of Systems Const Denies chills and Denies fever(s) Card Denies chest pain, Denies dyspnea and Denies dyspnea on exertion Resp Denies cough, Denies dyspnea and Denies dyspnea on exertion GI Denies hematochezia and Denies change in bowel habits Denies hematuria Musc Denies back pain and Denies limited range of motion Neuro Denies focal weakness and Denies convulsions Psych Denies depression and Denies mood swings Physical Exam Vital Signs: BMI result Body Mass Index 25.3 Const General: comfortable and no acute distress Resp Effort & Inspection: normal respiratory effort GI Palpation (GI): Soft to palpation, not firm, nontender and no guarding Assessment & Plan Assessment & Plan (1) Diverticulitis: Code(s): K57.92 - Diverticulitis of intestine, part unspecified, without perforation or abscess without bleeding Category: Medical Plan: She continues to do well after her an episode of diverticulitis with an abscess last March,. This was her 1st episode. She has a no abdominal pain. She denies any GI complaints I did remind her to be up-to-date with her colonoscopies. She says that he had a colonoscopy in 2021 and she was told this has unremarkable I also explained to her that diverticulitis maybe recurrent can once in a while require surgical intervention. She is aware of the symptoms for this as well. She can follow up with me on a p.r.n. basis I also advised her the benefits of high-fiber diet including Metamucil supplementation Coding Level of Care Code Est Pt Level 3 (86162) Diagnoses Diverticulitis K57.92
--- OUTSIDE RECORDS SUMMARY | 2025-05-21 10:31 | XMS_ITS | Patient Health Record ---
Author Organization [facility] Address [address] [place] [address] Care Team Providers Care Rehabilitation Case Coordinator Name Role Phone Malena Calderon MD Primary Care Provider Alli Ontiveros Jr Unavailable Reason For Referral No Information Medications Medication SIG (Take, Route, Frequency, Duration) Notes Start Date End Date Status MoviPrep 100 GM Solution Reconstituted as directed before colonoscopy Orally; Duration: 1 dose 11/05/2014 Active Social History Social History Additional Details Category Social Info Options Details Miscellaneous: Marital status: 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 Problems Problem Type SNOMED Code ICD Code Onset Dates Problem Status W/U Status Risk Notes Problem Rectal bleeding (15139100) Rectal bleeding (569.3) Active confirmed Plan Of Treatment Future Test Test Name Order Date COLONOSCOPY 11/05/2014 Insurance Providers Payer Name Payer Address Payer Phone Subscriber Number Group Number Insured Name Patient Relationship to Insured Coverage Start Date Coverage End Date [facility] [address] [place], [place] [phone] [phone] [id number] ERIC LEAHY Self - patient is the insured Medical (General) History Medical History History ICD Code Denies [place],DM,CVA,Lung disease,renal dise ase
== END 2025-05-21 09:52 | disposition home or self-care (01) ==
LOC: HO.HGS 09:27
PROVIDERS: PCP Nurse Practitioner Adult Health; Visit Provider Surgery
DX: K57.92 Diverticulitis of intestine, part unspecified, without perforation or abscess without bleeding (principal)
CPT/HCPCS: 99213

== ENCOUNTER → 2025-05-21 09:26 | Outpatient (BNVA) | payer MEDICARE, BC, SELFPAY | PROVIDERS: PCP Nurse Practitioner Adult Health; Visit Provider Surgery | DX: K57.92 Diverticulitis of intestine, part unspecified, without perforation or abscess without bleeding (principal) | CPT/HCPCS: 99212 ==